=== PATIENT | female | born 1955 | race Caucasian/White ===

== ENCOUNTER → 2016-07-06 | Outpatient (CLI) | payer BC ==
[~2016-07-06] MED LIST: CALCTAB7 PO; ERGO500037 PO; LEVO75TA PO; NRN/300 PO; PRLSR20 PO; VITRON C PO
[2016-07-06 17:27] LABS: THYROID STIMULATING HORMONE 0.781 uIu/ml (0.300-4.500)
== END | disposition home or self-care (01) ==
LOC: C.LABSPEC 15:17
PROVIDERS: ATTEND Internal Medicine
DX: E03.9 Hypothyroidism, unspecified (principal)

== ENCOUNTER → 2016-07-26 | Outpatient (CLI) | payer BC ==
--- NOTE | 2016-07-26 12:37 | MAMMOGRAPHY REPORT ---
BILATERAL DIGITAL SCREENING MAMMOGRAM TOMOSYNTHESIS WITH CAD: 07/26/2016 CLINICAL HISTORY: Routine screening. Patient has no complaints. TECHNIQUE: Breast tomosynthesis in addition to standard 2D mammography was performed. Current study was also evaluated with a Computer Aided Detection (CAD) system. COMPARISON: Comparison is made to exams dated: 07/23/2015 mammogram, 07/04/2013 mammogram, 07/17/2014 m ammogram, 06/27/2012 mammogram, 06/26/2011 mammogram, and 06/24/2010 mammogram - [facility]. BREAST COMPOSITION: There are scattered areas of fibroglandular density in both breasts. FINDINGS: No suspicious masses, calcifications, or areas of architectural distortion are noted in e ither breast. There has been no significant interval change compared to prior exams. Scattered bilat eral benign-appearing calcifications are not significantly changed. IMPRESSION: ACR BI-RADS CATEGORY 2: BENIGN There is no mammographic evidence of malignancy. A 1 year screening mammogram is recommended. The p atient will receive written notification of the results. Approximately 10% of breast cancers are not detected with mammography. A negative mammographic repor t should not delay biopsy if a clinically suggestive mass is present. Gela Benavides M.D. /:07/26/2016 12:11:47 Field Sales Representative: Heather DELATORRE)(), [facility] letter sent: Normal 1/2 BI-RADS Code: ACR BI-RADS Category 2: Benign
== END | disposition home or self-care (01) ==
LOC: C.MAMM 08:03
PROVIDERS: ATTEND Internal Medicine
DX: Z12.31 Encounter for screening mammogram for malignant neoplasm of breast (principal)

== ENCOUNTER → 2017-07-18 | Day surgery (SDC) | payer OTHER ==
[2017-07-05 10:30] VITALS: Ht 160 cm; Wt 88.6 kg
[~2017-07-18] VITALS: Ht 160 cm; Wt 88.6 kg
[~2017-07-18] MED LIST changes: +500ML BSS 0.3ML EPI 1:1000PF IRRIG ONE; +ACETAMINOPHEN 325 MG TAB PO PRN; +AMVISC PLUS 0.8ML SYRINGE INT OCU ONE; +ATROPINE SULFATE 0.1 MG/ML 5ML SYR IV PRN; +BSS FLUSH ONE; +CALC1TAB9 PO; -CALCTAB7 PO; +ENDOCOAT 0.85ML SYRINGE INT OCU ONE; -ERGO500037 PO; +EpHEDrine SULFATE INJ 50 MG/ML AMP IV PRN; +EpINEphrine INJ 1MG/ML AMP 1 MG/ML AMP ONE; +LACTATED RINGER'S 1000ML 500 ML IV SCH; +LIDOCAINE 4% OP SOLN DROP CHARGE ONE; +LIDOCAINE 4% OP SOLN DROP CHARGE OPL SCH; +LIDOCAINE HCL 1% MPF 2 ML VIAL ONE; +MELO15TA10 PO; +MIDAZOLAM HCL 1 MG/ML 2ML VIAL ONE; +MIX: 4ML BSS 1ML EPI 1:1000 PF TOP ONE; +MOXIFLOXACIN OPH SOLN PER DROP CHARGE ONE; +MULT-506 PO; -NRN/300 PO; +POVIDONE-IODINE OP SOLN 30 ML BTL ONE; +PROPARACAINE 0.5% OP SOLN PER DROP CHARGE OPL SCH; +SENNTAB23 PO; +TOBRAMYCIN/DEXAMETHASONE OPH OINT PER APPLN CHARGE ONE; -VITRON C PO
[2017-07-18] MEDS: PHENYLEPHRINE HCL 2.5% OP SOLN PER DROP CHARGE OPL SCH ×3 (06:34→06:43)
[2017-07-18] MEDS: TROPICAMIDE 1% OP SOLN PER DROP CHARGE OPL SCH ×3 (06:35→06:45)
[2017-07-18] MEDS: CYCLOPENTOLATE HCL 1% OP SOLN PER DROP CHARGE OPL SCH ×3 (06:36→06:46)
[2017-07-18] MEDS: MOXIFLOXACIN OPH SOLN PER DROP CHARGE OPL SCH ×3 (06:37→06:48)
--- NOTE | 2017-07-18 06:40 | History & Physical Bridge - SC ---
H&P Re-Evaluation Bridge Note: I have examined the patient, reviewed the History & Physical and in the interval since the performance of the History & Physical I have noted the following changes of clinical significance: No changes noted
--- NOTE | 2017-07-18 07:21 | [facility] Post Operative Brief Note ---
Immediate Operative Summary Operative Date Jul 18, 2017. Pre-Operative Diagnosis Left Eye Cataract Post-Operative Diagnosis Same Procedure(s) Performed Left Cataract Phacoemulsification With Intraocular Lens Implant Surgeon Dr. Gissel Zhong Deputy Sheriff Building Guard Surgeon(s) None Estimated Blood Loss 0 Findings Consistent with Post-Op Diagnosis Specimens None Drains None Anesthesia Type MAC Complication(s) none Disposition Accompanied Pt To Recovery: no Disposition:
--- NOTE | 2017-07-18 07:22 | [facility] Operative Report ---
Operative Report Date of Service Jul 18, 2017. Operative Report DATE OF OPERATION: 07/18/17 PREOPERATIVE DIAGNOSIS: Senile nuclear cataract, left eye POSTOPERATIVE DIAGNOSIS: Senile nuclear cataract, left eye PROCEDURE PERFORMED: Phacoemulsification with intraocular lens implantation, left eye SURGEON: Dr. Farhat Zhong ANESTHESIA: Topical with 1% intracameral lidocaine and monitored anesthesia care COMPLICATIONS: None DESCRIPTION OF PROCEDURE: After positively identifying the patient both verbally and by wristband in the preoperative area, the left eye was marked as the operative eye. The patient was then brought back to the operating room by the anesthesia and nursing staff where they were given a drop of Lidocaine and betadine into the operative eye. They were then sterilely prepped and draped in the standard fashion typical for ophthalmic surgery. Steri-strips were placed along the upper eyelids to keep the lashes back, and a lid speculum was placed into the operative eye. At this point, a documented time out was performed with members of the ophthalmology, nursing, and anesthesia staffs all agreeing upon the correct patient, correct location for surgery, correct procedure, and correct type and power of intraocular lens to be implanted. The microscope was then swung into position. First, a paracentesis wound was made using a sideport blade. Then, in sequence, 1% preservative-free lidocaine followed by Endocoat viscoelastic was injected into the anterior chamber. Next , the main incision was made with a keratome blade in triplanar fashion. A sharp cystotome was introduced into the eye and used to create a tear in the anterior capsule, which was directed into a continuous curvilinear capsulorrhexis using Utrata forceps. Hydrodissection was then performed with BSS on a flat-tip cannula. Next, the phacoemulsification handpiece was introduced into the eye and used to remove the nucleus in a nfssrh-[id number]-[id number] fashion. This was done without complication and then the irrigation-aspiration handpiece was introduced into the eye and used to remove all remaining cortical and epinuclear material. Amvisc was then injected into the anterior chamber as well as into the capsular bag and using the lens injector system, an MX60 23.0 D lens, serial number [id number], and expiration date 04/2019 was injected into the capsular bag and rotated into the correct position. Next, the irrigation- aspiration handpiece was used to remove all remaining Amvisc. BSS was used to hydrate the main wound, and then BSS was injected into the paracentesis site to reach physiologic pressure and then the main wound was checked and found to be watertight. The patient was given drops of Vigamox and Tobradex ointment into the operative eye, and then the surrounding area was cleaned and dried. A clear plastic shield was placed over the eye and the patient was then sat up and taken from the operating room by the anesthesia staff having tolerated the procedure well and suffering no complications. DISPOSITION: The patient was returned to the recovery room in stable condition. I attest to the content of the Intraoperative Record and any orders documented therein. Any exceptions are noted below.
--- NOTE | 2017-07-18 07:23 | Discharge Instructions-SurgCtr ---
Discharge Instructions Date of Service Jul 18, 2017. Visit Reason for Visit: Cataract Left Eye Discharge Discharge Diagnosis / Problem: left cataract Discharge Goals Goal(s): Decrease discomfort, Improve function Activity Recommendations Activity Limitations: as noted below Anesthesia . Post Anesthesia Instructions: If you have had General Anesthesia or IV Sedation: * Do not drive today. * Resume driving when surgeon permits. * Do not make important decisions or sign legal documents today. * Call surgeon for: 1. Temperature elevations greater than 101 degrees F. 2. Uncontrollable pain. 3. Excessive bleeding. 4. Persistent nausea and vomiting. 5. Medication intolerance (nausea, vomiting or rash). * For nausea and vomiting use only clear liquids such as: tea, soda, bouillon until nausea subsides, then gradually increase diet as tolerated. * If you have any concerns or questions, call your surgeon's office. If physician is unavailable and it is an emergency, call 911 or go to the nearest emergency room. . Instructions / Follow-Up Instructions / Follow-Up ACTIVITY RECOMMENDATIONS: * Light activities. * You may walk outside, read, watch television. * You may notice redness on the white part of the eye and some blurry vision - this is normal. MEDICATIONS: Resume previous medications unless instructed otherwise by your surgeon. Start all eye drops at 9:30 am today: * Eye drops (today): Prednisone - one drop in operative eye every 2 hours while awake Ofloxacin - one drop in operative eye every 2 hours while awake Prolensa - one drop in operative eye daily SPECIAL CARE INSTRUCTIONS: * Tape plastic shield over eye to sleep at night. Call your doctor at with any concerns or problems. FOLLOW UP VISIT: Follow-up with Dr Zhong at [place] office as scheduled. Diet Recommendations Home Diet: no limitations Procedures Procedures Performed: Left Cataract Phacoemulsification With Intraocular Lens Implant Pending Studies Studies pending at discharge: no Medical Emergencies . Who to Call and When: Medical Emergencies: If at any time you feel your situation is an emergency, please call 911 immediately. . Non-Emergent Contact Non-Emergency issues call your: Surgeon . . "Provider Documentation" section prepared by Farhat Zhong. .
--- NOTE | 2017-07-18 07:37 | Anesthesia Progress Nt - [facility] ---
Anesthesia Post Op Note Date & Time Jul 18, 2017 at 07:37 Vital Signs Pain Intensity: 0 Vital Signs Past 12 Hours Date Time Temp Pulse Resp B/P (MAP) Pulse Ox O2 Delivery O2 Flow Rate FiO2 07/18/17 07:21 36.4 71 16 135/86 (102) 96 Room Air 07/18/17 06:28 36.4 74 18 161/90 (113) 95 Room Air Notes Mental Status: alert / awake / arousable, participated in evaluation Pt Amnestic to Procedure: Yes Nausea / Vomiting: adequately controlled Pain: adequately controlled Airway Patency, RR, SpO2: stable & adequate BP & HR: stable & adequate Hydration State: stable & adequate Anesthetic Complications: no major complications apparent
[2017-07-18 07:47] VITALS: BP 129/81; PULSE 72; O2SAT 97
== END | disposition home or self-care (01) ==
LOC: X.SURG 06:22
PROVIDERS: ATTEND Ophthalmology
DX: H25.12 Age-related nuclear cataract, left eye (principal); G47.33 Obstructive sleep apnea (adult) (pediatric); K21.9 Gastro-esophageal reflux disease without esophagitis; Z98.84 Bariatric surgery status; E66.9 Obesity, unspecified; Z68.34 Body mass index [BMI] 34.0-34.9, adult; Z98.890 Other specified postprocedural states; Z79.899 Other long term (current) drug therapy

== ENCOUNTER → 2017-07-19 | Outpatient (CLI) | payer OTHER ==
[~2017-07-19] MED LIST changes: -500ML BSS 0.3ML EPI 1:1000PF IRRIG ONE; -ACETAMINOPHEN 325 MG TAB PO PRN; -AMVISC PLUS 0.8ML SYRINGE INT OCU ONE; -ATROPINE SULFATE 0.1 MG/ML 5ML SYR IV PRN; -BSS FLUSH ONE; -ENDOCOAT 0.85ML SYRINGE INT OCU ONE; -EpHEDrine SULFATE INJ 50 MG/ML AMP IV PRN; -EpINEphrine INJ 1MG/ML AMP 1 MG/ML AMP ONE; -LACTATED RINGER'S 1000ML 500 ML IV SCH; -LIDOCAINE 4% OP SOLN DROP CHARGE ONE; -LIDOCAINE 4% OP SOLN DROP CHARGE OPL SCH; -LIDOCAINE HCL 1% MPF 2 ML VIAL ONE; -MIDAZOLAM HCL 1 MG/ML 2ML VIAL ONE; -MIX: 4ML BSS 1ML EPI 1:1000 PF TOP ONE; -MOXIFLOXACIN OPH SOLN PER DROP CHARGE ONE; -POVIDONE-IODINE OP SOLN 30 ML BTL ONE; -PROPARACAINE 0.5% OP SOLN PER DROP CHARGE OPL SCH; -TOBRAMYCIN/DEXAMETHASONE OPH OINT PER APPLN CHARGE ONE
== END | disposition home or self-care (01) ==
LOC: C.PAPS 09:28
PROVIDERS: ATTEND Internal Medicine
DX: Z01.419 Encounter for gynecological examination (general) (routine) without abnormal findings (principal)

== ENCOUNTER → 2017-07-27 | Outpatient (CLI) | payer OTHER ==
--- NOTE | 2017-07-27 15:45 | MAMMOGRAPHY REPORT ---
BILATERAL DIGITAL SCREENING MAMMOGRAM TOMOSYNTHESIS WITH CAD: 07/27/2017 CLINICAL HISTORY: Routine screening. TECHNIQUE: Breast tomosynthesis in addition to standard 2D mammography was performed. Current study was also evaluated with a Computer Aided Detection (CAD) system. COMPARISON: Comparison is made to exams dated: 07/26/2016 mammogram, 07/23/2015 mammogram, 07/17/2014 ma mmogram, 07/04/2013 mammogram, 06/27/2012 mammogram, and 06/26/2011 mammogram - [facility]. BREAST COMPOSITION: There are scattered areas of fibroglandular density in both breasts. FINDINGS: No suspicious masses, calcifications, or areas of architectural distortion are noted in ei ther breast. There has been no significant interval change compared to prior exams. Scattered bilater al benign-appearing calcifications are not significantly changed. IMPRESSION: ACR BI-RADS CATEGORY 2: BENIGN There is no mammographic evidence of malignancy. A 1 year screening mammogram is recommended. The pa tient will receive written notification of the results. Approximately 10% of breast cancers are not detected with mammography. A negative mammographic report should not delay biopsy if a clinically suggestive mass is present. Gela Benavides M.D. /:07/27/2017 15:06:38 Regional Engineer: Marivel CULLEN(R)(M), [facility] letter sent: Normal 1/2 BI-RADS Code: ACR BI-RADS Category 2: Benign
== END | disposition home or self-care (01) ==
LOC: C.MAMM 08:46
PROVIDERS: ATTEND Internal Medicine
DX: Z12.31 Encounter for screening mammogram for malignant neoplasm of breast (principal)

== ENCOUNTER → 2017-08-01 | Day surgery (SDC) | payer OTHER ==
[2017-07-26 10:02] VITALS: Ht 160 cm; Wt 88.6 kg
[~2017-08-01] VITALS: Ht 160 cm; Wt 88.6 kg
[~2017-08-01] MED LIST changes: +500ML BSS 0.3ML EPI 1:1000PF IRRIG ONE; +ACETAMINOPHEN 325 MG TAB PO PRN; +AMVISC PLUS 0.8ML SYRINGE INT OCU ONE; +ATROPINE SULFATE 0.1 MG/ML 5ML SYR IV PRN; +BSS FLUSH ONE; +ENDOCOAT 0.85ML SYRINGE INT OCU ONE; +EpHEDrine SULFATE INJ 50 MG/ML AMP IV PRN; +EpINEphrine INJ 1MG/ML AMP 1 MG/ML AMP ONE; +FENTANYL CITRATE INJ 50 MCG/1 ML 2 ML VIAL ONE; +LACTATED RINGER'S 1000ML 500 ML IV SCH; +LIDOCAINE 4% OP SOLN DROP CHARGE ONE; +LIDOCAINE 4% OP SOLN DROP CHARGE OPR SCH; +LIDOCAINE HCL 1% MPF 2 ML VIAL ONE; +MIDAZOLAM HCL 1 MG/ML 2ML VIAL ONE; +MIX: 4ML BSS 1ML EPI 1:1000 PF TOP ONE; +MOXIFLOXACIN OPH SOLN PER DROP CHARGE ONE; +POVIDONE-IODINE OP SOLN 30 ML BTL ONE; +PROPARACAINE 0.5% OP SOLN PER DROP CHARGE OPR SCH; +TOBRAMYCIN/DEXAMETHASONE OPH OINT PER APPLN CHARGE ONE
[2017-08-01] MEDS: PHENYLEPHRINE HCL 2.5% OP SOLN PER DROP CHARGE OPR SCH ×3 (06:31→06:41)
[2017-08-01] MEDS: TROPICAMIDE 1% OP SOLN PER DROP CHARGE OPR SCH ×3 (06:32→06:42)
[2017-08-01] MEDS: CYCLOPENTOLATE HCL 1% OP SOLN PER DROP CHARGE OPR SCH ×3 (06:33→06:43)
[2017-08-01] MEDS: MOXIFLOXACIN OPH SOLN PER DROP CHARGE OPR SCH ×3 (06:34→06:44)
--- NOTE | 2017-08-01 07:20 | [facility] Post Operative Brief Note ---
Immediate Operative Summary Operative Date Aug 01, 2017. Pre-Operative Diagnosis Right Eye Cataract Post-Operative Diagnosis same Procedure(s) Performed Right Cataract Phacoemulsification With Intraocular Lens Implant Surgeon Dr. Gissel Zhong Nurse First Assist Surgeon(s) 0 Estimated Blood Loss 0 Findings Consistent with Post-Op Diagnosis Specimens none Anesthesia Type MAC Complication(s) none Disposition Accompanied Pt To Recovery: no Disposition:
--- NOTE | 2017-08-01 07:21 | [facility] Operative Report ---
Operative Report Date of Service Aug 01, 2017. Operative Report DATE OF OPERATION: 08/01/17 PREOPERATIVE DIAGNOSIS: Senile nuclear cataract, right eye POSTOPERATIVE DIAGNOSIS: Senile nuclear cataract, right eye PROCEDURE PERFORMED: Phacoemulsification with intraocular lens implantation, right eye SURGEON: Dr. Farhat Zhong ANESTHESIA: Topical with 1% intracameral lidocaine and monitored anesthesia care COMPLICATIONS: None DESCRIPTION OF PROCEDURE: After positively identifying the patient both verbally and by wristband in the preoperative area, the right eye was marked as the operative eye. The patient was then brought back to the operating room by the anesthesia and nursing staff where they were given a drop of Lidocaine and betadine into the operative eye. They were then sterilely prepped and draped in the standard fashion typical for ophthalmic surgery. Steri-strips were placed along the upper eyelids to keep the lashes back, and a lid speculum was placed into the operative eye. At this point, a documented time out was performed with members of the ophthalmology, nursing, and anesthesia staffs all agreeing upon the correct patient, correct location for surgery, correct procedure, and correct type and power of intraocular lens to be implanted. The microscope was then swung into position. First, a paracentesis wound was made using a sideport blade. Then, in sequence, 1% preservative-free lidocaine followed by Endocoat viscoelastic was injected into the anterior chamber. Next , the main incision was made with a keratome blade in triplanar fashion. A sharp cystotome was introduced into the eye and used to create a tear in the anterior capsule, which was directed into a continuous curvilinear capsulorrhexis using Utrata forceps. Hydrodissection was then performed with BSS on a flat-tip cannula. Next, the phacoemulsification handpiece was introduced into the eye and used to remove the nucleus in a taacok-rij-clfjsga fashion. This was done without complication and then the irrigation-aspiration handpiece was introduced into the eye and used to remove all remaining cortical and epinuclear material. Amvisc was then injected into the anterior chamber as well as into the capsular bag and using the lens injector system, an MX60 23.0 D lens, serial number [id number], and expiration date 01/2020 was injected into the capsular bag and rotated into the correct position. Next, the irrigation- aspiration handpiece was used to remove all remaining Amvisc. BSS was used to hydrate the main wound, and then BSS was injected into the paracentesis site to reach physiologic pressure and then the main wound was checked and found to be watertight. The patient was given drops of Vigamox and Tobradex ointment into the operative eye, and then the surrounding area was cleaned and dried. A clear plastic shield was placed over the eye and the patient was then sat up and taken from the operating room by the anesthesia staff having tolerated the procedure well and suffering no complications. DISPOSITION: The patient was returned to the recovery room in stable condition. I attest to the content of the Intraoperative Record and any orders documented therein. Any exceptions are noted below.
[2017-08-01 07:22] VITALS: TEMP 36.4
--- NOTE | 2017-08-01 07:22 | Discharge Instructions-SurgCtr ---
Discharge Instructions Date of Service Aug 01, 2017. Visit Reason for Visit: Right Cataract Discharge Discharge Diagnosis / Problem: right cataract Discharge Goals Goal(s): Decrease discomfort, Improve function Activity Recommendations Activity Limitations: as noted below Anesthesia . Post Anesthesia Instructions: If you have had General Anesthesia or IV Sedation: * Do not drive today. * Resume driving when surgeon permits. * Do not make important decisions or sign legal documents today. * Call surgeon for: 1. Temperature elevations greater than 101 degrees F. 2. Uncontrollable pain. 3. Excessive bleeding. 4. Persistent nausea and vomiting. 5. Medication intolerance (nausea, vomiting or rash). * For nausea and vomiting use only clear liquids such as: tea, soda, bouillon until nausea subsides, then gradually increase diet as tolerated. * If you have any concerns or questions, call your surgeon's office. If physician is unavailable and it is an emergency, call 911 or go to the nearest emergency room. . Instructions / Follow-Up Instructions / Follow-Up ACTIVITY RECOMMENDATIONS: * Light activities. * You may walk outside, read, watch television. * You may notice redness on the white part of the eye and some blurry vision - this is normal. MEDICATIONS: Resume previous medications unless instructed otherwise by your surgeon. Start all eye drops at 9:30 am today: * Eye drops (today): Prednisone - one drop in operative eye every 2 hours while awake Ofloxacin - one drop in operative eye every 2 hours while awake Prolensa - one drop in operative eye daily SPECIAL CARE INSTRUCTIONS: * Tape plastic shield over eye to sleep at night. Call your doctor at with any concerns or problems. FOLLOW UP VISIT: Follow-up with Dr Zhong at [place] office as scheduled. Diet Recommendations Home Diet: no limitations Procedures Procedures Performed: Right Cataract Phacoemulsification With Intraocular Lens Implant Pending Studies Studies pending at discharge: no Medical Emergencies . Who to Call and When: Medical Emergencies: If at any time you feel your situation is an emergency, please call 911 immediately. . Non-Emergent Contact Non-Emergency issues call your: Surgeon . . "Provider Documentation" section prepared by Farhat Zhong. .
[2017-08-01 07:37] VITALS: BP 149/89; PULSE 72; O2SAT 94
--- NOTE | 2017-08-01 07:42 | Anesthesia Progress Nt - [facility] ---
Anesthesia Post Op Note Date & Time Aug 01, 2017 at 07:42 Vital Signs Pain Intensity: 0 Vital Signs Past 12 Hours Date Time Temp Pulse Resp B/P (MAP) Pulse Ox O2 Delivery O2 Flow Rate FiO2 08/01/17 07:37 72 22 149/89 (109) 94 Room Air 08/01/17 07:22 36.4 61 16 134/83 (100) 94 Room Air 08/01/17 06:25 36.5 69 18 160/91 (114) 94 Room Air Notes Mental Status: alert / awake / arousable, participated in evaluation Pt Amnestic to Procedure: Yes Nausea / Vomiting: adequately controlled Pain: adequately controlled Airway Patency, RR, SpO2: stable & adequate BP & HR: stable & adequate Hydration State: stable & adequate Anesthetic Complications: no major complications apparent
== END | disposition home or self-care (01) ==
LOC: X.SURG 06:13
PROVIDERS: ATTEND Ophthalmology
DX: H25.11 Age-related nuclear cataract, right eye (principal); K21.9 Gastro-esophageal reflux disease without esophagitis; E03.9 Hypothyroidism, unspecified; G47.33 Obstructive sleep apnea (adult) (pediatric); K44.9 Diaphragmatic hernia without obstruction or gangrene; E66.9 Obesity, unspecified; Z98.51 Tubal ligation status; Z98.42 Cataract extraction status, left eye; Z90.49 Acquired absence of other specified parts of digestive tract

== ENCOUNTER → 2017-09-14 | Outpatient (CLI) | payer OTHER ==
[~2017-09-14] MED LIST changes: -500ML BSS 0.3ML EPI 1:1000PF IRRIG ONE; -ACETAMINOPHEN 325 MG TAB PO PRN; -AMVISC PLUS 0.8ML SYRINGE INT OCU ONE; -ATROPINE SULFATE 0.1 MG/ML 5ML SYR IV PRN; -BSS FLUSH ONE; -ENDOCOAT 0.85ML SYRINGE INT OCU ONE; -EpHEDrine SULFATE INJ 50 MG/ML AMP IV PRN; -EpINEphrine INJ 1MG/ML AMP 1 MG/ML AMP ONE; -FENTANYL CITRATE INJ 50 MCG/1 ML 2 ML VIAL ONE; -LACTATED RINGER'S 1000ML 500 ML IV SCH; -LIDOCAINE 4% OP SOLN DROP CHARGE ONE; -LIDOCAINE 4% OP SOLN DROP CHARGE OPR SCH; -LIDOCAINE HCL 1% MPF 2 ML VIAL ONE; -MIDAZOLAM HCL 1 MG/ML 2ML VIAL ONE; -MIX: 4ML BSS 1ML EPI 1:1000 PF TOP ONE; -MOXIFLOXACIN OPH SOLN PER DROP CHARGE ONE; -POVIDONE-IODINE OP SOLN 30 ML BTL ONE; -PROPARACAINE 0.5% OP SOLN PER DROP CHARGE OPR SCH; -TOBRAMYCIN/DEXAMETHASONE OPH OINT PER APPLN CHARGE ONE
--- NOTE | 2017-09-22 12:54 | CODING QUERY MEDICAL NECESSITY ---
CQTREATMENT RENDERED WITHOUT A DIAGNOSIS To promote full compliance with coding requirements relating to patient care, physician participation is requested in all cases of wrecking mechanic uncertainty. Please assist us with providing a diagnosis/symptom for the test(s) below: A diagnosis/symptom was not documented on your Order. A valid diagnosis/symptom is required to bill all insurances. Please remember that we are unable to code a diagnosis of rule out, probable, possible, questionable, or suspected. Tests that require a diagnosis: DOS 09/14/17 URINE CULTURE Provider Signature: Date: Thank you Kathy Rojas [employer] Information [employer] Once completed, please kindly fax back to [phone] For questions please call [phone]
== END | disposition home or self-care (01) ==
LOC: C.LABSPEC 18:12
PROVIDERS: ATTEND Internal Medicine
DX: N39.0 Urinary tract infection, site not specified (principal)

== ENCOUNTER 2019-10-04 15:00 | Inpatient (IN) ==
[2019-10-04] MEDS ORDERED: ONDANSETRON INJ 2 MG/ML 2 ML VIAL IV STA (15:33)
[2019-10-04] MEDS ORDERED: HYDROmorphone INJ 1 MG/ML SYRINGE IV STA (15:33)
[2019-10-04] MEDS ORDERED: SODIUM CHLORIDE 0.9% 1000ML 1,000 ML IV ONE (15:33)
[2019-10-04 16:00] LABS: Basophils # (auto) 0.05 K/uL (0-0.2); Basophils % (auto) 0.4 %; Eosinophils # (auto) 0.11 K/uL (0-0.5); Eosinophils % (auto) 0.9 %; Hematocrit (blood only) 38.1 % (37-47); Hemoglobin 12.9 g/dL (12.0-16.0); Immature Granulocytes # (auto) 0.03 K/uL (0.00-0.02); Immature Granulocytes % (auto) 0.2 %; Lymphocytes # (auto) 1.42 K/uL (1.2-3.4); Lymphocytes % (auto) 11.2 %; Mean Corpuscular Hgb Conc 33.9 g/dL (32-36); Mean Corpuscular Volume 88.6 fL (80-100); Monocytes # (auto) 0.68 K/uL (0.11-0.59); Monocytes % (auto) 5.4 %; Neutrophils # (auto) 10.42 K/uL (1.4-6.5); Neutrophils % (auto) 81.9 %; Platelet Count 323 K/uL (130-400); White Blood Count 12.71 K/uL (4.8-10.8)
[2019-10-04 16:18] LABS: Alanine Aminotransferase 21 U/L (12-78); Albumin Level 3.7 gm/dl (3.4-5.0); Aspartate Aminotransferase 19 U/L (15-37); BUN Creatinine Ratio 19.5 (10-20); Blood Urea Nitrogen 16 mg/dl (7-18); Calcium 8.8 mg/dl (8.5-10.1); Carbon Dioxide 26 mmol/L (21-32); Chloride 106 mmol/L (98-107); Est GFR (African American) 90.9; Est GFR (Non-African American) 78.5; Glucose 135 mg/dl (70-99); Lipase 104 U/L (73-393); Potassium 3.6 mmol/L (3.5-5.1); Sodium 138 mmol/L (136-145)
[2019-10-04 16:22] LABS: Albumin Globulin Ratio 0.8 (0.9-2); Alkaline Phosphatase 130 U/L (45-117); Bilirubin,Total 0.3 mg/dl (0.2-1); Globulin 4.5 gm/dl (2.5-4.0); Total Protein 8.2 gm/dl (6.4-8.2); Troponin I < 0.015 ng/ml (0-0.045)
[2019-10-04] MEDS ORDERED: IOVERSOL 100ml IV PRN (16:57)
--- NOTE | 2019-10-04 17:11 | CT Scan Report ---
CT abd pelvis IV con only CLINICAL HISTORY: 63 years-old Female presenting with epigastric pain, vomiting. TECHNIQUE: Multidetector CT of the abdomen and pelvis was performed after the administration of intra venous contrast. IV contrast: 92 mL of Optiray 320. One or more dose lowering techniques were used co nsistent with the principles of ALARA (as low as reasonably achievable), including automatic exposure control, mA or kV adjustment to individual patient size, and/or use of iterative reconstruction. COMPARISON: None. CT DOSE (mGy.cm): The estimated cumulative dose is 1003.12 mGy.cm. FINDINGS: Pulmonologist/Intensivist topogram: Cholecystectomy clips. Lung bases: Normal heart size. Coronary artery and aortic valve calcification. No pericardial or pleu ral effusion. Mosaic attenuation at the lung bases. Mild bronchial wall thickening may be present. Pa tchy added density is difficult to exclude. Liver: Normal morphology. No liver lesion. Patent hepatic vasculature. Biliary: Mild biliary ductal prominence likely a reservoir effect in the post cholecystectomy state. Gallbladder surgically absent. Pancreas: Moderate parenchymal atrophy. Spleen: Focal hypoenhancement superiorly in the spleen in a wedgelike perfusion as well as inferiorly . Adrenal glands: Normal. Kidneys and ureters: Few simple cysts. No hydronephrosis. No gross nephrolithiasis. Ureters nondisten ded. Bladder: Normal. Pelvic organs: Uterus and ovaries normal. Bowel: Fatty atrophy of the appendix suspected. No bowel obstruction. Postsurgical changes of antecol ic Kylie-en-Y gastric bypass. Patent distal anastomosis. No abnormal distention of the pancreaticobili caty limb. Peritoneal cavity: No free fluid or intraperitoneal gas. Lymph nodes: No enlarged lymph nodes in the abdomen or pelvis. Vasculature: Atherosclerosis of the normal caliber abdominal aorta. Mesenteric branch vessels appear widely patent. No focal vessel irregularity. IVC patent. Abdominal wall: Normal. Musculoskeletal: Degenerative changes of the spine. IMPRESSION: 1. Two separate geographic regions of hypoenhancement in the spleen characteristic of splenic infarc ts. This is presumably embolic. 2. Atherosclerosis without evidence of vessel occlusion or focal arterial irregularity. 3. 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 4. Status post cholecystectomy. 5. The appearance of the lung bases may suggest small airways disease, reactive airways disease, or viral bronchiolitis. ACT 112: Negative or not required by law. Electronically signed by: Charles Hoffman M.D. 10/04/2019 5:09 PM
[2019-10-04 18:10] LABS: INR 1.1 (0.9-1.1); Partial Thromboplastin Ratio 0.9; Partial Thromboplastin Time 24.8 Seconds (21.0-31.0); Prothrombin Time 11.4 Seconds (9.0-12.0)
[2019-10-04] MEDS ORDERED: ONDANSETRON INJ 2 MG/ML 2 ML VIAL ONE (18:47)
[2019-10-04 19:05] LABS: Appearance Urine Clear (Clear); Bacteria Urine Automated Negative (Negative); Bilirubin Urine Negative (Negative); Blood Urine 1+ (Negative); Cast Urine Automated 0 /lpf (0-5); Color Urine Yellow; Glucose Urine UA Negative (Negative); Ketones Urine 1+ (Negative); Leukocyte Esterase Urine Negative (Negative); Nitrite Urine Negative (Negative); Specific Gravity Urine 1.025 (1.000-1.030); Urobilinogen Urine Negative (Negative); pH Urine 7.5 (4.5-7.5)
[2019-10-04 19:20] LABS: Protein Urine 1+ (Negative); Sulfosalicylic Acid Urine Positive (Negative)
[2019-10-04] MEDS ORDERED: ACETAMINOPHEN 1,000 MG/100 ML VIAL IV STA (19:28)
[2019-10-04] MEDS ORDERED: PROMETHAZINE 6.25 MG/50.25 ML BAG IV STA (19:28)
--- NOTE | 2019-10-04 20:17 | History & Physical Report ---
Date of Service October 04, 2019 Assessment & Plan (1) Splenic infarct: 63yo C female presenting with acute onset abdominal pain, found to have two regions of hypoenhancement in the spleen which is characteristic of splenic infarcts, presumably embolic in nature. Also noted to have atherosclerosis of the aorta without clot or dilatation, s/p cholecystectomy and Kylie-en-Y gastric bypass surgery. Lung bases suggestive of small airway disease, reactive disease or viral bronchiolitis. Patient with no prior history of blood clots/VTE. Overall she denies complaint of fever/chills/body aches/cough/SOB. She denies recent travel, sick contacts or contact with Covid-19 positive persons. Patient without known hematologic disease or dyscrasia. Lipase is WNL. She is afebrile, hemodynamically stable. Per review of literature, SARS-CoV-2 is associated with increased risk of coagulopathy and thromboembolic events. While it is unlikely that Covid-19 is the underlying cause for her acute presentation in the setting of splenic infarct from suspected thromboembolism and small airway disesease of lung bases will request in-house rapid SARS-CoV-2 testing. This was discussed with lab and ER staff. Patient was returned to Airborne/Contact precautions pending results. -SARS-CoV-2 PCR test sent and pending -Maintain precautions, Airborne and Contact until testing is resulted -Check bilateral LE doppler -Check 2D echo -These above studies can be delayed pending results of rapid SARS-CoV-2 testing -No anticoaguation at this time -Pain control PRN -Gentle hydration -Zofran PRN -Should patient clinically worsen or become hemodynamically compromised will consult General Surgery (2) Hypothyroidism: Chronic -Check TSH with AM labs -Continue Synthroid 75mcg po daily Present on Admission?: Yes (3) GERD (gastroesophageal reflux disease): Patient with history of GERD, Barretts esophagus with esophageal dilatation in the past. EGD 11/2018 with hiatal hernia, Schatzki ring which was dilated -Continue Omeprazole 20mg po daily F/E/N - Gentle hydration, monitor electrolytes and replete as needed, NPO for now Ppx - Lovenox Code - Full per discussion with patient Dispo - Admit to medical floor Present on Admission?: Yes Admission and Anticipated Discharge Date Admission Date: 10/04/19 Anticipated date of discharge: 10/06/19 History of Present Illness Chief Complaint: Abdominal pain Primary Care Provider: Louis Lopez MD Kathy Ford is a 63yo C female presenting with acute onset abdominal pain, nausea and vomiting x 1 day. Found to have splenic infarct. History limited as patient in extreme discomfort during my encounter. She is able to answer ques tions appropriately and follow commands. ER Course: Tylenol, Dilaudid, Zofran, Phenergan, NSS Allergies Allergy/AdvReac Type Severity Reaction Status Date / Time No Known Allergies Allergy Verified 10/04/19 19:07 Home Medications Home Medications Medication Instructions Recorded Confirmed Type Women's Multivitamin 1 tab PO QAM 04/01/18 10/04/19 History calcium citrate-vitamin D3 2 tab PO QAM 04/01/18 10/04/19 History [Citracal + D Maximum] docusate sodium 200 mg PO QAM 04/01/18 10/04/19 History levothyroxine 75 mcg PO QAM 04/01/18 10/04/19 History omeprazole 20 mg PO QAM 04/01/18 10/04/19 History meloxicam 15 mg PO DAILY 10/04/19 10/04/19 History metoprolol succinate 50 mg PO DAILY 10/04/19 10/04/19 History Past Med/Surg History Social History Preferred Language: Greek Communication Ability: Effective Photographer Still Required: No Beliefs That Will Affect Care: None Current Living Situation: Family Current Living Situation Comment: lives with fiance, daughter and grandson Other Information That Helps Us Care for You: No Feels Safe at Home: Yes Safety Concerns: Feels Safe At This Time Smoking Status: Former smoker Tobacco Type: cigarettes ; Second Hand Exposure: Yes ; Hx Alcohol Use: Yes Alcohol type: beer Hx Substance Use: No Review of Systems Review of Systems: All systems reviewed & are unremarkable except as noted in HPI & below Physical Exam Physical Exam: General: patient in moderate distress secondary to abdominal discomfort, answers questions appropriately and follows commands Skin: warm, dry, intact, no rashes or lesions HEENT: NC/AT, PERRL, EOMI, anicteric sclera, conjunctiva without injection, external ear normal to inspection and nontender, nares patent, moist mucus membranes, dentition intact, no oropharyngeal lesions, neck supple, trachea midline, no LAD, no thyromegaly, no JVD Heart: +S1/S2, regular, no m/r/g Lungs: equal air entry bilaterally, no rales/rhonchi/wheezes Abd: diminished bowel sounds, abdomen mildly distended, soft, tender to palpation with voluntary guarding Ext: warm, 2+ pulses in UE/LE bilaterally, no clubbing/cyanosis or edema Neuro: nonfocal, patient AA&O, speech intact, no facial droop, moving all extremities on command with equal strength 5/5 Results & Data Results & Data ([facility]) Vital Signs (Past 12 Hours) Vital Signs Temp Pulse Pulse Resp BP BP Pulse Ox 10/04/19 19:31 76 12 178/92 H 94 10/04/19 19:03 67 19 134/66 98 10/04/19 18:30 70 15 148/78 H 93 10/04/19 18:00 72 15 151/85 H 94 10/04/19 17:30 70 15 148/86 H 93 10/04/19 17:00 70 15 151/85 H 93 10/04/19 16:30 73 15 148/86 H 93 10/04/19 16:15 68 15 98 10/04/19 16:00 68 66 14 152/78 H 152/78 H 95 10/04/19 15:52 70 20 161/87 H 91 10/04/19 15:51 73 16 93 10/04/19 15:49 72 19 167/86 H 91 10/04/19 15:45 72 20 92 10/04/19 15:30 76 20 167/86 H 96 10/04/19 15:12 37.0 C 72 20 187/94 H 96 Laboratory Results Lab Results 10/04/19 10/04/19 10/04/19 Range/Units 15:40 15:40 15:40 WBC 12.71 H (4.8-10.8) K/uL RBC 4.30 (4.2-5.4) M/uL Hgb 12.9 (12.0-16.0) g/dL Hct 38.1 (37-47) % MCV 88.6 (80-100) fL MCH 30.0 (25-34) pg MCHC 33.9 (32-36) g/dL RDW Std Deviation 45.0 (36.4-46.3) fL RDW Coeff of Iqra 14.0 (11.5-14.5) % Plt Count 323 (130-400) K/uL MPV 10.0 (7.4-10.4) fL Immature Gran % (Auto) 0.2 % Neut % (Auto) 81.9 % Lymph % (Auto) 11.2 % [place] % (Auto) 5.4 % Eos % (Auto) 0.9 % Baso % (Auto) 0.4 % Immature Gran # (Auto) 0.03 H (0.00-0.02) K/uL Neut # (Auto) 10.42 H (1.4-6.5) K/uL Lymph # (Auto) 1.42 (1.2-3.4) K/uL [place] # (Auto) 0.68 H (0.11-0.59) K/uL Eos # (Auto) 0.11 (0-0.5) K/uL Baso # (Auto) 0.05 (0-0.2) K/uL PT 11.4 (9.0-12.0) Seconds INR 1.1 (0.9-1.1) APTT 24.8 (21.0-31.0) Seconds PTT Ratio 0.9 Sodium 138 (136-145) mmol/L Potassium 3.6 (3.5-5.1) mmol/L Chloride 106 (98-107) mmol/L Carbon Dioxide 26 (21-32) mmol/L Anion Gap 5.0 (3-11) BUN 16 (7-18) mg/dl Creatinine 0.80 (0.6-1.2) mg/dl Est Cr Clr Drug Dosing Not Reportable Est GFR ( Amer) 90.9 Est GFR (Non-Af Amer) 78.5 BUN/Creatinine Ratio 19.5 (10-20) Glucose 135 H (70-99) mg/dl Calcium 8.8 (8.5-10.1) mg/dl Total Bilirubin 0.3 (0.2-1) mg/dl AST 19 (15-37) U/L ALT 21 (12-78) U/L Alkaline Phosphatase 130 H (45-117) U/L Troponin I < 0.015 (0-0.045) ng/ml Total Protein 8.2 (6.4-8.2) gm/dl Albumin 3.7 (3.4-5.0) gm/dl Globulin 4.5 H (2.5-4.0) gm/dl Albumin/Globulin Ratio 0.8 L (0.9-2) Lipase 104 (73-393) U/L Urine Color Urine Appearance (Clear) Urine pH (4.5-7.5) Ur Specific [place] (1.000-1.030) Urine Protein (Negative) Urine Glucose (UA) (Negative) Urine Ketones (Negative) Urine Blood (Negative) Urine Nitrite (Negative) Urine Bilirubin (Negative) Urine Urobilinogen (Negative) Ur Leukocyte Esterase (Negative) Urine WBC (Auto) (0-5) /hpf Urine RBC (Auto) (0-4) /hpf U Hyaline Cast (Auto) (0-5) /lpf U Epithel Cells (Auto) (0-5) /lpf Urine Bacteria (Auto) (Negative) SARS-CoV-2 RNA (RT-PCR) 10/04/19 10/04/19 Range/Units 18:48 20:17 WBC (4.8-10.8) K/uL RBC (4.2-5.4) M/uL Hgb (12.0-16.0) g/dL Hct (37-47) % MCV (80-100) fL MCH (25-34) pg MCHC (32-36) g/dL RDW Std Deviation (36.4-46.3) fL RDW Coeff of Iqra (11.5-14.5) % Plt Count (130-400) K/uL MPV (7.4-10.4) fL Immature Gran % (Auto) % Neut % (Auto) % Lymph % (Auto) % [place] % (Auto) % Eos % (Auto) % Baso % (Auto) % Immature Gran # (Auto) (0.00-0.02) K/uL Neut # (Auto) (1.4-6.5) K/uL Lymph # (Auto) (1.2-3.4) K/uL [place] # (Auto) (0.11-0.59) K/uL Eos # (Auto) (0-0.5) K/uL Baso # (Auto) (0-0.2) K/uL PT (9.0-12.0) Seconds INR (0.9-1.1) APTT (21.0-31.0) Seconds PTT Ratio Sodium (136-145) mmol/L Potassium (3.5-5.1) mmol/L Chloride (98-107) mmol/L Carbon Dioxide (21-32) mmol/L Anion Gap (3-11) BUN (7-18) mg/dl Creatinine (0.6-1.2) mg/dl Est Cr Clr Drug Dosing Est GFR ( Amer) Est GFR (Non-Af Amer) BUN/Creatinine Ratio (10-20) Glucose (70-99) mg/dl Calcium (8.5-10.1) mg/dl Total Bilirubin (0.2-1) mg/dl AST (15-37) U/L ALT (12-78) U/L Alkaline Phosphatase (45-117) U/L Troponin I (0-0.045) ng/ml Total Protein (6.4-8.2) gm/dl Albumin (3.4-5.0) gm/dl Globulin (2.5-4.0) gm/dl Albumin/Globulin Ratio (0.9-2) Lipase (73-393) U/L Urine Color Yellow Urine Appearance Clear (Clear) Urine pH 7.5 (4.5-7.5) Ur Specific [place] 1.025 (1.000-1.030) Urine Protein 1+ H (Negative) Urine Glucose (UA) Negative (Negative) Urine Ketones 1+ H (Negative) Urine Blood 1+ H (Negative) Urine Nitrite Negative (Negative) Urine Bilirubin Negative (Negative) Urine Urobilinogen Negative (Negative) Ur Leukocyte Esterase Negative (Negative) Urine WBC (Auto) 1-5 (0-5) /hpf Urine RBC (Auto) 5-10 H (0-4) /hpf U Hyaline Cast (Auto) 0 (0-5) /lpf U Epithel Cells (Auto) 5-10 H (0-5) /lpf Urine Bacteria (Auto) Negative (Negative) SARS-CoV-2 RNA (RT-PCR) Cancelled ECG Additional Comments: The study shows sinus bradycardia at 59bpm, normal axis, XB=681, QRS=92, JAu=499, no acute ischemic changes Code Status & VTE Plan Code Status FULL VTE Prophylaxis Plan VTE Prophylaxis will be ordered: Yes PG Care Time/CCT Total # of Minutes Spent Total Time Spent with Patient: Total time spent is greater than 50% in coordination of care (as documented) at patient's floor/unit and/or counseling patient: Coding Level of Care Code 05727 OBS Care - Level 2 Diagnoses Splenic infarct D73.5 Hypothyroidism E03.9 Hypothyroidism type: unspecified GERD (gastroesophageal reflux disease) K21.0 Esophagitis presence: with esophagitis (1) Hypothyroidism Hypothyroidism type: unspecified Qualified Code(s): E03.9 - Hypothyroidism, unspecified (2) GERD (gastroesophageal reflux disease) Esophagitis presence: with esophagitis Qualified Code(s): K21.0 - Gastro- esophageal reflux disease with esophagitis
--- NOTE | 2019-10-04 23:00 | Emergency Department Note ---
History of Present Illness General Chief complaint: Abdominal Pain Stated complaint: ABD PAIN, VOMITING Time Seen by Provider: 10/04/19 15:18 Source: patient Mode of arrival: ambulatory Limitations: no limitations History of Present Illness Maximum Pain Intensity: 4 This patient is a 63-year-old female who presents to the emergency department for evaluation of abdominal pain and vomiting which started about 3 hours prior to arrival. Patient states that she has had an upset stomach for the past few days, but symptoms became severe about 3 hours ago. She states that she was not doing anything when the pain started. Pain is in the upper abdomen and associated with nausea and vomiting. She reports that she has had some loose stools recently, but has not been having large bowel movements. She denies urinary symptoms, fevers, chest pain, cough or shortness of breath. She states that this pain is severe and rates the discomfort a 9/10. She states that nothing makes the pain better and it is worsened with movements. She has a history of gastric bypass and cholecystectomy. She is treated for GERD and hypertension and is otherwise healthy. Home Medications Home Medications Medication Instructions Recorded Confirmed Type Women's Multivitamin 1 tab PO QAM 04/01/18 10/04/19 History calcium citrate-vitamin D3 2 tab PO QAM 04/01/18 10/04/19 History [Citracal + D Maximum] docusate sodium 200 mg PO QAM 04/01/18 10/04/19 History levothyroxine 75 mcg PO QAM 04/01/18 10/04/19 History omeprazole 20 mg PO QAM 04/01/18 10/04/19 History meloxicam 15 mg PO DAILY 10/04/19 10/04/19 History metoprolol succinate 50 mg PO DAILY 10/04/19 10/04/19 History Allergies Allergy/AdvReac Type Severity Reaction Status Date / Time No Known Allergies Allergy Verified 10/04/19 19:07 Past Med/Surg History Medical History Barretts esophagus Colon polyps Fatty liver disease, nonalcoholic GERD (gastroesophageal reflux disease) History of esophageal dilatation Hypothyroidism Migraine Nausea and vomiting after administration of anesthetic agent Osteoarthritis Sleep apnea doesn't use CPAP as ordered Surgical History History of bilateral cataract extraction History of carpal tunnel release bilt History of cholecystectomy History of colonoscopy History of dilatation and curettage History of esophagogastroduodenoscopy (EGD) History of gastric bypass History of repair of hiatal hernia History of tooth extraction wisdom teeth Social History Preferred Language: [place] Communication Ability: Effective Computer Analyst Required: No Beliefs That Will Affect Care: None Current Living Situation: Family Current Living Situation Comment: lives with fiance, daughter and grandson Other Information That Helps Us Care for You: No Feels Safe at Home: Yes Safety Concerns: Feels Safe At This Time Smoking Status: Former smoker Tobacco Type: cigarettes ; Second Hand Exposure: Yes ; Hx Alcohol Use: Yes Alcohol type: beer Hx Substance Use: No Review of Systems A total of 10 systems reviewed and were otherwise negative Physical Exam Vital Signs Vital Signs - 24 hr 10/04/19 15:12 10/04/19 15:30 10/04/19 15:45 Temperature 37.0 C Temperature Source Oral Oral Pulse Rate 72 72 Pulse Rate [Apical] 76 Pulse Rate from SpO2 Sensor Pulse Rhythm [Apical] Regular Pulse Strength [Apical] Normal Respiratory Rate 20 20 20 Respiratory Effort / Characteristics Non-Labored Non-Labored Spontaneous Respiratory Depth Normal Normal Respiratory Pattern Regular Blood Pressure 187/94 H Blood Pressure [Left Arm] 167/86 H Blood Pressure Mean 125 Blood Pressure Mean [Left Arm] 113 Blood Pressure Position [Left Arm] Lying Pulse Oximetry 96 96 92 Oxygen Delivery Method Room Air Room Air Nasal Cannula Oxygen Flow Rate 3 Sepsis Recent Fever Within 48 Hours No Sepsis Action Taken by Nursing No Action Required Oxygen Flow Rate - Titration 3 Pulse Oximetry Post Tiitration 92 10/04/19 15:49 10/04/19 15:51 10/04/19 15:52 Temperature Temperature Source Pulse Rate 72 73 70 Pulse Rate [Apical] Pulse Rate from SpO2 Sensor 76 71 65 Pulse Rhythm [Apical] Pulse Strength [Apical] Respiratory Rate 19 16 20 Respiratory Effort / Characteristics Respiratory Depth Respiratory Pattern Blood Pressure 167/86 H 161/87 H Blood Pressure [Left Arm] Blood Pressure Mean 101 106 Blood Pressure Mean [Left Arm] Blood Pressure Position [Left Arm] Pulse Oximetry 91 93 91 Oxygen Delivery Method Nasal Cannula Nasal Cannula Nasal Cannula Oxygen Flow Rate 3 3 3 Sepsis Recent Fever Within 48 Hours Sepsis Action Taken by Nursing Oxygen Flow Rate - Titration Pulse Oximetry Post Tiitration 05/09/20 16:00 10/04/19 16:15 10/04/19 16:30 Temperature Temperature Source Pulse Rate 68 68 73 Pulse Rate [Apical] 66 Pulse Rate from SpO2 Sensor 68 63 73 Pulse Rhythm [Apical] Regular Pulse Strength [Apical] Normal Respiratory Rate 14 15 15 Respiratory Effort / Characteristics Non-Labored Spontaneous Respiratory Depth Normal Respiratory Pattern Regular Blood Pressure 152/78 H 148/86 H Blood Pressure [Left Arm] 152/78 H Blood Pressure Mean 91 103 Blood Pressure Mean [Left Arm] 102 Blood Pressure Position [Left Arm] Lying Pulse Oximetry 95 98 93 Oxygen Delivery Method Nasal Cannula Nasal Cannula Nasal Cannula Oxygen Flow Rate 3 3 3 Sepsis Recent Fever Within 48 Hours Sepsis Action Taken by Nursing Oxygen Flow Rate - Titration Pulse Oximetry Post Tiitration 10/04/19 17:00 10/04/19 17:30 10/04/19 18:00 Temperature Temperature Source Pulse Rate 70 70 72 Pulse Rate [Apical] Pulse Rate from SpO2 Sensor 73 73 73 Pulse Rhythm [Apical] Pulse Strength [Apical] Respiratory Rate 15 15 15 Respiratory Effort / Characteristics Respiratory Depth Respiratory Pattern Blood Pressure 151/85 H 148/86 H 151/85 H Blood Pressure [Left Arm] Blood Pressure Mean 107 106 107 Blood Pressure Mean [Left Arm] Blood Pressure Position [Left Arm] Pulse Oximetry 93 93 94 Oxygen Delivery Method Nasal Cannula Nasal Cannula Nasal Cannula Oxygen Flow Rate 3 3 3 Sepsis Recent Fever Within 48 Hours Sepsis Action Taken by Nursing Oxygen Flow Rate - Titration Pulse Oximetry Post Tiitration 10/04/19 18:30 10/04/19 19:03 10/04/19 19:31 Temperature Temperature Source Pulse Rate 70 67 76 Pulse Rate [Apical] Pulse Rate from SpO2 Sensor 73 62 74 Pulse Rhythm [Apical] Pulse Strength [Apical] Respiratory Rate 15 19 12 Respiratory Effort / Characteristics Respiratory Depth Respiratory Pattern Blood Pressure 148/78 H 134/66 178/92 H Blood Pressure [Left Arm] Blood Pressure Mean 101 77 103 Blood Pressure Mean [Left Arm] Blood Pressure Position [Left Arm] Pulse Oximetry 93 98 94 Oxygen Delivery Method Nasal Cannula Nasal Cannula Nasal Cannula Oxygen Flow Rate 3 2 2 Sepsis Recent Fever Within 48 Hours Sepsis Action Taken by Nursing Oxygen Flow Rate - Titration Pulse Oximetry Post Tiitration 10/04/19 20:00 Temperature Temperature Source Pulse Rate 61 Pulse Rate [Apical] Pulse Rate from SpO2 Sensor 63 Pulse Rhythm [Apical] Pulse Strength [Apical] Respiratory Rate 15 Respiratory Effort / Characteristics Respiratory Depth Respiratory Pattern Blood Pressure 172/89 H Blood Pressure [Left Arm] Blood Pressure Mean 113 Blood Pressure Mean [Left Arm] Blood Pressure Position [Left Arm] Pulse Oximetry 93 Oxygen Delivery Method Nasal Cannula Oxygen Flow Rate 2 Sepsis Recent Fever Within 48 Hours Sepsis Action Taken by Nursing Oxygen Flow Rate - Titration Pulse Oximetry Post Tiitration VITALS: Vitals are noted on the nurse's note and reviewed by myself. GENERAL: This is a 63-year-old female, in moderate distress, moaning in pain. SKIN: The skin was without rashes. EARS: External auditory canals clear, tympanic membranes pearly dubois without erythema or effusion bilaterally. EYES: Pupils equal round and reactive to light and accommodation. MOUTH: Mucous membranes moist. NECK: Supple without nuchal rigidity. No lymphadenopathy. HEART: Regular rate and rhythm without murmurs gallops or rubs. LUNGS: Clear to auscultation bilaterally without wheezes, rales or rhonchi. No retractions or accessory muscle use. ABDOMEN: Hypoactive bowel sounds x4. Abdomen is soft and nondistended. There is mild tenderness to palpation throughout the abdomen, with significant tendern ess in the epigastric region. No guarding or rebound tenderness. EXTREMITIES: No pitting edema of the lower extremities. NEURO: Patient was alert and oriented to person place and time. Course Consultations Consultation #1: Dr. Zuñiga - Vascular surgery I spoke with Dr. Zuñiga regarding the case and he does not feel the patient should be given heparin at this time as there is no occlusion. Consultation #2: Krystal Day PA-C - [facility] [place] Administered Medications Ioversol (Optiray 320 100ml) 92 ml IV ONCE PRN PRN Reason: Interaction Checking Stop: 10/08/19 16:56 Last Admin: 10/04/19 16:57 Dose: 92 ml Documented by: [id number] Discontinued Medications Hydromorphone HCl (Dilaudid) 1 mg IV NOW STA Stop: 10/04/19 15:34 Last Admin: 10/04/19 15:44 Dose: 1 mg Documented by: [id number] Sodium Chloride (Nss 1000ml) 1,000 mls @ 999 mls/hr IV .Q1H1M ONE Stop: 10/04/19 16:33 Last Infusion: 10/04/19 16:45 Dose: 0 mls/hr Documented by: [id number] Admin: 10/04/19 15:44 Dose: 999 mls/hr Documented by: [id number] Acetaminophen (Ofirmev) 1,000 mg in 100 mls @ 400 mls/hr IV NOW STA Stop: 10/04/19 19:42 Last Infusion: 10/04/19 20:24 Dose: 0 mls/hr Documented by: [id number] Admin: 10/04/19 19:54 Dose: 400 mls/hr Documented by: [id number] Promethazine HCl (Phenergan) 6.25 mg in 50.25 mls @ 201 mls/hr IV NOW STA Stop: 10/04/19 19:42 Last Infusion: 10/04/19 19:54 Dose: 0 mls/hr Documented by: [id number] Admin: 10/04/19 19:40 Dose: 201 mls/hr Documented by: [id number] Ondansetron HCl (Zofran) 4 mg IV NOW STA Stop: 10/04/19 15:34 Last Admin: 10/04/19 15:44 Dose: 4 mg Documented by: [id number] Ondansetron HCl (Zofran) Confirm Administered Dose 4 mg .ROUTE .STK-MED ONE Stop: 10/04/19 18:48 Last Admin: 10/04/19 19:01 Dose: 4 mg Documented by: [id number] Medical Decision Making Differential Diagnosis Differential diagnosis includes appendicitis, diverticulitis, bowel obstruction, inflammatory bowel disease, renal colic, PUD, biliary pathology, pancreatitis, mesenteric ischemia, aortic pathology, infection, genitourinary, UTI, perforated viscus, among others. Home Medications Current Medication List: was personally reviewed by me Laboratory Data Attestation: I reviewed the patient's lab results. Result diagrams: 10/04/19 15:40 10/04/19 15:40 Lab Results 10/04/19 10/04/19 10/04/19 Range/Units 15:40 15:40 15:40 WBC 12.71 H (4.8-10.8) K/uL RBC 4.30 (4.2-5.4) M/uL Hgb 12.9 (12.0-16.0) g/dL Hct 38.1 (37-47) % MCV 88.6 (80-100) fL MCH 30.0 (25-34) pg MCHC 33.9 (32-36) g/dL RDW Std Deviation 45.0 (36.4-46.3) fL RDW Coeff of Iqra 14.0 (11.5-14.5) % Plt Count 323 (130-400) K/uL MPV 10.0 (7.4-10.4) fL Immature Gran % (Auto) 0.2 % Neut % (Auto) 81.9 % Lymph % (Auto) 11.2 % [place] % (Auto) 5.4 % Eos % (Auto) 0.9 % Baso % (Auto) 0.4 % Immature Gran # (Auto) 0.03 H (0.00-0.02) K/uL Neut # (Auto) 10.42 H (1.4-6.5) K/uL Lymph # (Auto) 1.42 (1.2-3.4) K/uL [place] # (Auto) 0.68 H (0.11-0.59) K/uL Eos # (Auto) 0.11 (0-0.5) K/uL Baso # (Auto) 0.05 (0-0.2) K/uL PT 11.4 (9.0-12.0) Seconds INR 1.1 (0.9-1.1) APTT 24.8 (21.0-31.0) Seconds PTT Ratio 0.9 Sodium 138 (136-145) mmol/L Potassium 3.6 (3.5-5.1) mmol/L Chloride 106 (98-107) mmol/L Carbon Dioxide 26 (21-32) mmol/L Anion Gap 5.0 (3-11) BUN 16 (7-18) mg/dl Creatinine 0.80 (0.6-1.2) mg/dl Est Cr Clr Drug Dosing Not Reportable Est GFR ( Amer) 90.9 Est GFR (Non-Af Amer) 78.5 BUN/Creatinine Ratio 19.5 (10-20) Glucose 135 H (70-99) mg/dl Calcium 8.8 (8.5-10.1) mg/dl Total Bilirubin 0.3 (0.2-1) mg/dl AST 19 (15-37) U/L ALT 21 (12-78) U/L Alkaline Phosphatase 130 H (45-117) U/L Troponin I < 0.015 (0-0.045) ng/ml Total Protein 8.2 (6.4-8.2) gm/dl Albumin 3.7 (3.4-5.0) gm/dl Globulin 4.5 H (2.5-4.0) gm/dl Albumin/Globulin Ratio 0.8 L (0.9-2) Lipase 104 (73-393) U/L Urine Color Urine Appearance (Clear) Urine pH (4.5-7.5) Ur Specific [place] (1.000-1.030) Urine Protein (Negative) Urine Glucose (UA) (Negative) Urine Ketones (Negative) Urine Blood (Negative) Urine Nitrite (Negative) Urine Bilirubin (Negative) Urine Urobilinogen (Negative) Ur Leukocyte Esterase (Negative) Urine WBC (Auto) (0-5) /hpf Urine RBC (Auto) (0-4) /hpf U Hyaline Cast (Auto) (0-5) /lpf U Epithel Cells (Auto) (0-5) /lpf Urine Bacteria (Auto) (Negative) 10/04/19 Range/Units 18:48 WBC (4.8-10.8) K/uL RBC (4.2-5.4) M/uL Hgb (12.0-16.0) g/dL Hct (37-47) % MCV (80-100) fL MCH (25-34) pg MCHC (32-36) g/dL RDW Std Deviation (36.4-46.3) fL RDW Coeff of Iqra (11.5-14.5) % Plt Count (130-400) K/uL MPV (7.4-10.4) fL Immature Gran % (Auto) % Neut % (Auto) % Lymph % (Auto) % [place] % (Auto) % Eos % (Auto) % Baso % (Auto) % Immature Gran # (Auto) (0.00-0.02) K/uL Neut # (Auto) (1.4-6.5) K/uL Lymph # (Auto) (1.2-3.4) K/uL [place] # (Auto) (0.11-0.59) K/uL Eos # (Auto) (0-0.5) K/uL Baso # (Auto) (0-0.2) K/uL PT (9.0-12.0) Seconds INR (0.9-1.1) APTT (21.0-31.0) Seconds PTT Ratio Sodium (136-145) mmol/L Potassium (3.5-5.1) mmol/L Chloride (98-107) mmol/L Carbon Dioxide (21-32) mmol/L Anion Gap (3-11) BUN (7-18) mg/dl Creatinine (0.6-1.2) mg/dl Est Cr Clr Drug Dosing Est GFR ( Amer) Est GFR (Non-Af Amer) BUN/Creatinine Ratio (10-20) Glucose (70-99) mg/dl Calcium (8.5-10.1) mg/dl Total Bilirubin (0.2-1) mg/dl AST (15-37) U/L ALT (12-78) U/L Alkaline Phosphatase (45-117) U/L Troponin I (0-0.045) ng/ml Total Protein (6.4-8.2) gm/dl Albumin (3.4-5.0) gm/dl Globulin (2.5-4.0) gm/dl Albumin/Globulin Ratio (0.9-2) Lipase (73-393) U/L Urine Color Yellow Urine Appearance Clear (Clear) Urine pH 7.5 (4.5-7.5) Ur Specific [place] 1.025 (1.000-1.030) Urine Protein 1+ H (Negative) Urine Glucose (UA) Negative (Negative) Urine Ketones 1+ H (Negative) Urine Blood 1+ H (Negative) Urine Nitrite Negative (Negative) Urine Bilirubin Negative (Negative) Urine Urobilinogen Negative (Negative) Ur Leukocyte Esterase Negative (Negative) Urine WBC (Auto) 1-5 (0-5) /hpf Urine RBC (Auto) 5-10 H (0-4) /hpf U Hyaline Cast (Auto) 0 (0-5) /lpf U Epithel Cells (Auto) 5-10 H (0-5) /lpf Urine Bacteria (Auto) Negative (Negative) Imaging Data Attestation: I personally reviewed and interpreted this imaging study as follows: Radiologist's Impression: CT abd pelvis IV con only FINDINGS: Clinical Documentation Clerk topogram: Cholecystectomy clips. Lung bases: Normal heart size. Coronary artery and aortic valve calcification. No pericardial or pleural effusion. Mosaic attenuation at the lung bases. Mild bronchial wall thickening may be present. Patchy added density is difficult to exclude. Liver: Normal morphology. No liver lesion. Patent hepatic vasculature. Biliary: Mild biliary ductal prominence likely a reservoir effect in the post cholecystectomy state. Gallbladder surgically absent. Pancreas: Moderate parenchymal atrophy. Spleen: Focal hypoenhancement superiorly in the spleen in a wedgelike perfusion as well as inferiorly. Adrenal glands: Normal. Kidneys and ureters: Few simple cysts. No hydronephrosis. No gross nephrolithiasis. Ureters nondistended. Bladder: Normal. Pelvic organs: Uterus and ovaries normal. Bowel: Fatty atrophy of the appendix suspected. No bowel obstruction. Postsurgical changes of antecolic Kylie-en-Y gastric bypass. Patent distal anastomosis. No abnormal distention of the pancreaticobiliary limb. Peritoneal cavity: No free fluid or intraperitoneal gas. Lymph nodes: No enlarged lymph nodes in the abdomen or pelvis. Vasculature: Atherosclerosis of the normal caliber abdominal aorta. Mesenteric branch vessels appear widely patent. No focal vessel irregularity. IVC patent. Abdominal wall: Normal. Musculoskeletal: Degenerative changes of the spine. IMPRESSION: 1. Two separate geographic regions of hypoenhancement in the spleen characteristic of splenic infarcts. This is presumably embolic. 2. Atherosclerosis without evidence of vessel occlusion or focal arterial i rregularity. 3. 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 4. Status post cholecystectomy. 5. The appearance of the lung bases may suggest small airways disease, reactive airways disease, or viral bronchiolitis. ECG Data Attestation: I personally reviewed and interpreted this ECG as follows: Indication: + abdominal pain Rate (beats per minute): 59 Rhythm: + sinus bradycardia ECG Intervals/blocks: + Normal QRS ECG [place]: + Normal ECG ST segments: + Normal ST segments Change: no significant change Blood Pressure Blood Pressure Findings: Elevated blood pressure Blood Pressure Disposition: further management by hospitalist VARINDER Avila The patient is a 63-year-old female who presents today complaining of abdominal pain and vomiting. Labs revealed mild leukocytosis of 12,000, no anemia or concerning electrolyte abnormalities. Troponin was not elevated. Glucose mildly elevated at 135. CT of the abdomen and pelvis was performed with IV contrast and reviewed by radiology. This showed findings consistent with 2 separate splenic infarcts, presumably embolic. Patient found to have atherosclerosis with no evidence of a vessel occlusion or focal arterial irregularity. I did speak with Dr. Zuñiga from vascular surgery and he does not recommend anticoagulation at this time given that there is no occlusion. Patient will need to be admitted for pain control. She had fair control of her pain with Dilaudid, although this caused some significant drowsiness for her. When this began to wear off, she did complain of increasing pain and was given IV Tylenol and Phenergan for her symptoms. [facility] the patient for further care. The patient's case was discussed with Dr. Diana, who agreed with my evaluation and treatment plan. Impression & Plan Splenic infarct, Abdominal pain Discharge Plan Visit Data Chief Complaint: Abdominal Pain Stated Complaint: ABD PAIN, VOMITING ED Provider: Jaylen Diana ED Midlevel Provider: Gertchen Mathews Discharge Problem: Splenic infarct, Abdominal pain Discharge Instructions Interventions: ED Discharge Assessment Last Done: 10/04/19 21:23
[2019-10-04] MEDS ORDERED: ONDANSETRON INJ 2 MG/ML 2 ML VIAL IV PRN (23:02)
[2019-10-04] MEDS ORDERED: HYDROmorphone INJ 1 MG/ML SYRINGE IV PRN (23:02)
[2019-10-04] MEDS ORDERED: DOCUSATE SODIUM 100 MG CAP PO PRN (23:02)
[2019-10-04] MEDS ORDERED: ACETAMINOPHEN 325 MG TAB PO PRN (23:02)
[2019-10-04 23:23] LABS: Magnesium 2.1 mg/dl (1.8-2.4); Phosphorus 3.5 mg/dl (2.5-4.9)
[2019-10-05] MEDS: SODIUM CHLORIDE 0.9% 1000ML 1,000 ML IV SCH ×2 (00:37→12:23)
[2019-10-05] MEDS ORDERED: HYDROmorphone INJ 0.5 MG/0.5 ML SYR IV PRN (03:34)
[2019-10-05 06:08] LABS: Basophils # (auto) 0.01 K/uL (0-0.2); Basophils % (auto) 0.1 %; Hematocrit (blood only) 39.7 % (37-47); Hemoglobin 13.7 g/dL (12.0-16.0); Immature Granulocytes # (auto) 0.04 K/uL (0.00-0.02); Immature Granulocytes % (auto) 0.3 %; Lymphocytes # (auto) 1.37 K/uL (1.2-3.4); Lymphocytes % (auto) 9.2 %; Mean Corpuscular Hgb Conc 34.5 g/dL (32-36); Mean Corpuscular Volume 87.1 fL (80-100); Mean Platelet Volume 9.9 fL (7.4-10.4); Monocytes # (auto) 0.73 K/uL (0.11-0.59); Monocytes % (auto) 4.9 %; Neutrophils # (auto) 12.68 K/uL (1.4-6.5); Neutrophils % (auto) 85.5 %; Platelet Count 293 K/uL (130-400); RDW Coefficient of Variation 13.9 % (11.5-14.5); RDW Standard Deviation 43.5 fL (36.4-46.3); Red Blood Count 4.56 M/uL (4.2-5.4); White Blood Count 14.83 K/uL (4.8-10.8)
[2019-10-05 06:43] LABS: Alanine Aminotransferase 23 U/L (12-78); Albumin Level 3.8 gm/dl (3.4-5.0); Aspartate Aminotransferase 27 U/L (15-37); BUN Creatinine Ratio 13.8 (10-20); Blood Urea Nitrogen 10 mg/dl (7-18); Calcium 8.7 mg/dl (8.5-10.1); Carbon Dioxide 25 mmol/L (21-32); Chloride 97 mmol/L (98-107); Est GFR (African American) 105.1; Est GFR (Non-African American) 90.7; Glucose 157 mg/dl (70-99); Potassium 3.4 mmol/L (3.5-5.1)
[2019-10-05 06:48] LABS: Alkaline Phosphatase 139 U/L (45-117); Bilirubin Direct < 0.1 mg/dl (0-0.2); Bilirubin,Total 0.5 mg/dl (0.2-1); Thyroid Stimulating Hormone 0.344 uIu/ml (0.300-4.500); Total Protein 8.7 gm/dl (6.4-8.2)
[2019-10-05] MEDS ORDERED: ENOXAPARIN INJ 40 MG/0.4 ML SYR SQ SCH (08:00)
[2019-10-05 08:06] LABS: Sodium 131 mmol/L (136-145)
[2019-10-05] MEDS: METOPROLOL SUCC 50MG EXT REL TAB PO SCH (08:56)
[2019-10-05] MEDS: PANTOprazole 40 MG TAB PO SCH (08:56)
[2019-10-05] MEDS: DOCUSATE SODIUM 100 MG CAP PO SCH (08:56)
[2019-10-05] MEDS: LEVOTHYROXINE SODIUM 75 MCG TABLET PO SCH (08:56)
[2019-10-05] MEDS ORDERED: ENOXAPARIN 1 MG/KG SQ SCH (09:00)
[2019-10-05] MEDS ORDERED: ENOXAPARIN INJ 60 MG/0.6 ML SYR SQ ONE (09:45)
[2019-10-05] MEDS: POTASSIUM CHLORIDE / WTR 10 MEQ/100 ML PLCT IV SCH ×2 (09:48→10:38)
--- NOTE | 2019-10-05 10:43 | XCELERA ---
[id number]
[2019-10-05] MEDS ORDERED: PIPERACILL/TAZOBAC CONSULT ACTIVE PRN (11:02)
[2019-10-05 11:16] LABS: Base Excess ABG 0.3 mEq/L (-9-1.8); HCO3 ABG 24 mmol/L (19-24); Oxygen Saturation ABG 95.3 % (90-95); PCO2 ABG 35 mmHg (35-46); PO2 ABG 73 mmHg (80-95); pH ABG 7.45 (7.35-7.45)
[2019-10-05 11:21] LABS: Allen Test Pos (Pos)
--- NOTE | 2019-10-05 11:28 | Hospitalist Progress Note ---
Date of Service October 05, 2019 Assessment & Plan (1) Splenic infarct: This pt is a 63yo C female presenting with acute onset abdominal pain, found to have two regions of hypoenhancement in the spleen which is characteristic of splenic infarcts, presumably embolic in nature. Also noted to have atherosclerosis of the aorta without clot or dilatation, s/p cholecystectomy and Kylie-en-Y gastric bypass surgery. Lung bases suggestive of small airway disease, reactive disease or viral bronchiolitis. Patient with no prior history of blood clots/VTE. Overall she denies complaint of fever/chills/body aches/cough/SOB. 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 Patient without known hematologic disease or dyscrasia. Lipase is WNL. Per review of literature, SARS-CoV-2 is associated with increased risk of coagulopathy and thromboembolic events. While it is unlikely that Covid-19 is the underlying cause for her acute presentation in the setting of splenic infarct from suspected thromboembolism and small airway disease of lung bases - she had SARS-CoV-2 testing which was NEGATIVE. Also found today to have multiple embolic acute CVAs on brain imaging as below With low grade temps and worsening leukocytosis--> likely secondary to splenic infarct, but will check blood cultures and add on empiric ZOsyn ECHO with no thrombus and no valvular abnormalities Tele with short burst atrial tachycardia so far, but no Afib/flutter and no h/o such in the past as per pt or her daughter -started Lovenox therapeutic dosing, but now will switch to heparin gtt given multiple large CVAs as below in case of hemorrhagic conversion -no mesenteric vessel occlusion or need for Vascular intervention Appreciate Surgery consultation-no surgical need at this time, no evidence of splenic abscess -Pain control PRN w/ tylenol only so as not to cloud her mental status -Gentle hydration with 2L NS ordered -Zofran PRN -continue tele monitoring to look for occult Afib/flutter (2) Encephalopathy acute: Was lethargic through the night and this AM persisted despite not receiving any sedating meds in over 12 hours With low grade temps and worsening leukocytosis, splenic infarct, thought given to early sepsis--> lactate normal, abg normal -blood cultures drawn-follow Empiric Zosyn started in case of developing infection from splenic infarct- continue x 48 hours until BCxs no growth -CT head with acute/subacute CVAs -MRI brain with numerous acute and subacute CVAs as below--> most likely cause of encephalopathy although still could be some infectious component COVID-19 negative -follow (3) Acute CVA (cerebrovascular accident): As above, with AMS and found to have numerous strokes on brain MRI in posterior circulation, seems embolic in nature especially in light of splenic infarcts -ECHO without abnormality, no thrombus seen -continue tele monitoring -consider LONA, appreciate Cardio consult -will need loop recorder vs 30 day event monitor after discharge if no Afib found here -received therapeutic Lovenox this AM and now convert to heparin gtt as higher risk for hemorrhagic conversion of large numerous strokes Fortunately, her lethargy and confusion have improved throughout the day CTA head/neck no vascular occlusions -nausea is improved Keep MAPs around 100-is on Toprol so will watch this -stroke order set--> Neuro checks, Neuro consult, PT/OT/Speech Tx ordered -no ASA needed as per my d/w Neuro as most likely embolic and starting anticoagulation -start statin and check lipids in AM -check HgbA1C in AM -avoid sedating medications (4) Leukocytosis: 12k on admission and up to 14k today, with low grade temps UA without infection CXR negative but bottoms of lungs on CT abd/pel with appearance of viral bronchiolitis--> but no SOB, no cough, not likely PNA Could be from splenic infarcts Was having a mild runny nose prior to admission thought to be from allergies COVID 19 negative, Biofire negative -check BCxs -empiric abx with Zosyn for intra-abdominal source -follow CBC (5) Hypokalemia: mild, replace with IV KCl follow BMP (6) Nausea & vomiting: associated with acute CVAs in cerebellum plus splenic infarcts -resolved -continue antiemetics prn -received IVFs (7) Hyponatremia: Na+ dropped down to 131 today Could be from poor po intake -now receiving 2L NS and should be improved by tomorrow (8) Sleep apnea: not on CPAP (9) GERD (gastroesophageal reflux disease): Patient with history of GERD, Barretts esophagus with esophageal dilatation in the past. EGD 11/2018 with hiatal hernia, Schatzki ring which was dilated -Continue Omeprazole 20mg po daily (10) Hypothyroidism: Chronic -TSH her enormal -Continue Synthroid 75mcg po daily (11) DVT prophylaxis: Heparin gtt Dispo-guarded prognosis Updated daughter Monica by phone on 3 occasions today Admission and Anticipated Discharge Date Admission Date: October 04, 2019 Subjective Pt was seen twice today and also called her daughter on three occasions, spoke with Neurology and Cardiology as well as General Surgery regarding her case. This AM, RN noted pt to be very lethargic and confused despite not receiving any pain meds or nausea meds for over 12 hours. She was however able to get out of bed and ambulate to the bathroom. I came to assess the pt and noted the same. She said only minimal abdominal pain, but was falling asleep mid-sentence. She was oriented only to person and did not know why she was in the hospital. She denies headache but her BP was elevated today. She denies chest pain or SOB. She had no facial droop or pronator drift. SHe had full strength throughout her extremities, speech was normal, but she was confused and lethargic. She was also noted to have a low grade fever, leukocytosis worsening. Tele with NSR and one 7 beat run of atrial tachycardia. RN was told in report that pt was tired throughout the night but would wake up and answer questions. 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 She came home after 1 PM that day and said she was going to bed. Shortly after that, the daughter heard her making noises and went to check on her and she was c/o nausea and abdominal pain and she vomited. She was not confused at that time. The pt's fiance' brought her to the ER but then was not present with her during admission. She was noted to be in a lot of pain but was not confused upon admission. It is unclear when this mental status change actually occurred. After workup throughout the day, pt was noted to have significant improvement. Initially she was moved to airborne precautions and I was going to repeat her COVID testing given the low grade fever, AMS, and worsening leukocytosis. However, after speaking to Dr. Yu/[employer], he recommended waiting at least 24 hours since the last COVID test to repeat it if I strongly suspected COVID. Because of precautions, she could not have urgent imaging done as per hospital policy. Because she continued to be encephalopathic , I asked that she be allowed to have a STAT head CT and given that sh ehad a negative COVID test last evening, CT agreed to let her come down (they said they would then have to shut down the scanner for two hours to clean it). FOund to have strokes and then since that was the cause of her encephalopathy, I discontinued her airborne precautions and felt COVID was not likely at that point. She was then sent for a brain MRI which showed numerous strokes in posterior circulation. In the evening, pt was oriented x 3, much more awake and alert, recalled most of the events of the previous day, and was no longer nauseated. Review of Systems Review of Systems: All systems reviewed & are unremarkable except as noted in HPI & below Physical Exam Constitutional: WD/WN, vitals as above Eyes: PERRL, conjunctivae normal, anicteric sclerae ENMT: external ear and nose normal, oropharynx normal Neck: trachea midline, no thyromegaly Respiratory: normal respiratory effort, lungs clear to auscultation Cardiovascular: RRR, no murmur, no edema Chest (Breasts): Chest: normal inspection of chest Gastrointestinal (Abdomen): Inspection/Auscultation: normal bowel sounds; + abdomen abnormal to inspection (incisional scars from previous laparoscopic surgery present) and abdomen not distended Percussion/Palpation: + abdomen tender (mild in LUQ w/o guarding or rebound tenderness) and abdomen soft Musculoskeletal: Extremities: extremities normal to inspection; no cyanosis and no clubbing Skin: no rashes, warm and dry Neurologic: CN's II-XI intact bilaterally, deep tendon reflexes 2+ bi laterally, moves all extremities and + confused; no focal motor deficits Motor/Sensory: no tremor, no pronator drift and no sensory deficit Psychiatric: Orientation: alert and oriented x 3 (later in day but earlier was only oriented to person) Lymphatic: no lymphedema Results & Data Results & Data ([facility]) Vital Signs (Past 12 Hours) Vital Signs Temp Pulse Pulse Pulse Resp BP Pulse Ox 10/05/19 09:01 80 169/80 H 10/05/19 07:34 86 10/05/19 07:12 37.6 C H 77 20 181/108 H 96 10/05/19 03:33 37.0 C 79 16 166/97 H 95 10/05/19 01:45 69 10/05/19 00:39 37.1 C 64 16 160/74 H 94 10/05/19 00:00 37.0 C 65 18 172/94 H 93 Laboratory Results 10/05/19 10/05/19 10/05/19 Range/Units 11:51 11:51 11:05 WBC (4.8-10.8) K/uL RBC (4.2-5.4) M/uL Hgb (12.0-16.0) g/dL Hct (37-47) % MCV (80-100) fL MCH (25-34) pg MCHC (32-36) g/dL RDW Std Deviation (36.4-46.3) fL RDW Coeff of Iqra (11.5-14.5) % Plt Count (130-400) K/uL MPV (7.4-10.4) fL Immature Gran % (Auto) % Neut % (Auto) % Lymph % (Auto) % Wallace % (Auto) % Eos % (Auto) % Baso % (Auto) % Immature Gran # (Auto) (0.00-0.02) K/uL Neut # (Auto) (1.4-6.5) K/uL Lymph # (Auto) (1.2-3.4) K/uL Wallace # (Auto) (0.11-0.59) K/uL Eos # (Auto) (0-0.5) K/uL Baso # (Auto) (0-0.2) K/uL ABG pH 7.45 (7.35-7.45) ABG pCO2 35 (35-46) mmHg ABG pO2 73 L (80-95) mmHg ABG HCO3 24 (19-24) mmol/L ABG O2 Saturation 95.3 H (90-95) % ABG Base Excess 0.3 (-9-1.8) mEq/L Jesús Test Pos (Pos) Barometric Pressure 733.9 mm/Hg Oxygen Given Room Air Sodium (136-145) mmol/L Potassium (3.5-5.1) mmol/L Chloride (98-107) mmol/L Carbon Dioxide (21-32) mmol/L Anion Gap (3-11) BUN (7-18) mg/dl Creatinine (0.6-1.2) mg/dl Est Cr Clr Drug Dosing ml/min Est GFR ( Amer) Est GFR (Non-Af Amer) BUN/Creatinine Ratio (10-20) Glucose (70-99) mg/dl Estimat Average Glucose Hemoglobin A1c Lactate (0.4-2.0) mmol/L Calcium (8.5-10.1) mg/dl Phosphorus (2.5-4.9) mg/dl Magnesium (1.8-2.4) mg/dl Total Bilirubin (0.2-1) mg/dl Direct Bilirubin (0-0.2) mg/dl AST (15-37) U/L ALT (12-78) U/L Alkaline Phosphatase (45-117) U/L Total Protein (6.4-8.2) gm/dl Albumin (3.4-5.0) gm/dl TSH (0.300-4.500) uIu/ml Adenovirus (PCR) Not Detected (NotDetected) B. pertussis DNA (PCR) Not Detected (NotDetected) B.parapertussis DNA PCR Not Detected (NotDetected) C. pneumoniae DNA (PCR) Not Detected (NotDetected) Coronavirus OC43 (PCR) Not Detected (NotDetected) Coronavirus HKU1 (PCR) Not Detected (NotDetected) Coronavirus 229E (PCR) Not Detected (NotDetected) COVID-19 PCR (Negative) Coronavirus NL63 (PCR) Not Detected (NotDetected) Human Metapneumovir PCR Not Detected (NotDetected) Influenza Type A (PCR) Not Detected (NotDetected) Influenza Type B (PCR) Not Detected (NotDetected) M. pneumoniae (PCR) Not Detected (NotDetected) Parainfluenza 1 (PCR) Not Detected (NotDetected) Parainfluenza 2 (PCR) Not Detected (NotDetected) Parainfluenza 3 (PCR) Not Detected (NotDetected) Parainfluenza 4 (PCR) Not Detected (NotDetected) RSV (PCR) Not Detected (NotDetected) Entero/Rhino (PCR) Not Detected (NotDetected) SARS-CoV-2 RNA (RT-PCR) Pending 10/05/19 10/05/19 10/05/19 Range/Units 11:04 05:22 05:22 WBC (4.8-10.8) K/uL RBC (4.2-5.4) M/uL Hgb (12.0-16.0) g/dL Hct (37-47) % MCV (80-100) fL MCH (25-34) pg MCHC (32-36) g/dL RDW Std Deviation (36.4-46.3) fL RDW Coeff of Iqra (11.5-14.5) % Plt Count (130-400) K/uL MPV (7.4-10.4) fL Immature Gran % (Auto) % Neut % (Auto) % Lymph % (Auto) % Wallace % (Auto) % Eos % (Auto) % Baso % (Auto) % Immature Gran # (Auto) (0.00-0.02) K/uL Neut # (Auto) (1.4-6.5) K/uL Lymph # (Auto) (1.2-3.4) K/uL Wallace # (Auto) (0.11-0.59) K/uL Eos # (Auto) (0-0.5) K/uL Baso # (Auto) (0-0.2) K/uL ABG pH (7.35-7.45) ABG pCO2 (35-46) mmHg ABG pO2 (80-95) mmHg ABG HCO3 (19-24) mmol/L ABG O2 Saturation (90-95) % ABG Base Excess (-9-1.8) mEq/L Jesús Test (Pos) Barometric Pressure mm/Hg Oxygen Given Sodium 131 L D (136-145) mmol/L Potassium 3.4 L (3.5-5.1) mmol/L Chloride 97 L (98-107) mmol/L Carbon Dioxide 25 (21-32) mmol/L Anion Gap 9.0 (3-11) BUN 10 D (7-18) mg/dl Creatinine 0.71 (0.6-1.2) mg/dl Est Cr Clr Drug Dosing 91.0 ml/min Est GFR ( Amer) 105.1 Est GFR (Non-Af Amer) 90.7 BUN/Creatinine Ratio 13.8 (10-20) Glucose 157 H (70-99) mg/dl Estimat Average Glucose Pending Hemoglobin A1c Pending Lactate 0.9 (0.4-2.0) mmol/L Calcium 8.7 (8.5-10.1) mg/dl Phosphorus (2.5-4.9) mg/dl Magnesium (1.8-2.4) mg/dl Total Bilirubin 0.5 (0.2-1) mg/dl Direct Bilirubin < 0.1 (0-0.2) mg/dl AST 27 (15-37) U/L ALT 23 (12-78) U/L Alkaline Phosphatase 139 H (45-117) U/L Total Protein 8.7 H (6.4-8.2) gm/dl Albumin 3.8 (3.4-5.0) gm/dl TSH 0.344 (0.300-4.500) uIu/ml Adenovirus (PCR) (NotDetected) B. pertussis DNA (PCR) (NotDetected) B.parapertussis DNA PCR (NotDetected) C. pneumoniae DNA (PCR) (NotDetected) Coronavirus OC43 (PCR) (NotDetected) Coronavirus HKU1 (PCR) (NotDetected) Coronavirus 229E (PCR) (NotDetected) COVID-19 PCR (Negative) Coronavirus NL63 (PCR) (NotDetected) Human Metapneumovir PCR (NotDetected) Influenza Type A (PCR) (NotDetected) Influenza Type B (PCR) (NotDetected) M. pneumoniae (PCR) (NotDetected) Parainfluenza 1 (PCR) (NotDetected) Parainfluenza 2 (PCR) (NotDetected) Parainfluenza 3 (PCR) (NotDetected) Parainfluenza 4 (PCR) (NotDetected) RSV (PCR) (NotDetected) Entero/Rhino (PCR) (NotDetected) SARS-CoV-2 RNA (RT-PCR) 10/05/19 10/04/19 10/04/19 Range/Units 05:22 20:17 15:40 WBC 14.83 H (4.8-10.8) K/uL RBC 4.56 (4.2-5.4) M/uL Hgb 13.7 (12.0-16.0) g/dL Hct 39.7 (37-47) % MCV 87.1 (80-100) fL MCH 30.0 (25-34) pg MCHC 34.5 (32-36) g/dL RDW Std Deviation 43.5 (36.4-46.3) fL RDW Coeff of Iqra 13.9 (11.5-14.5) % Plt Count 293 (130-400) K/uL MPV 9.9 (7.4-10.4) fL Immature Gran % (Auto) 0.3 % Neut % (Auto) 85.5 % Lymph % (Auto) 9.2 % Wallace % (Auto) 4.9 % Eos % (Auto) 0.0 % Baso % (Auto) 0.1 % Immature Gran # (Auto) 0.04 H (0.00-0.02) K/uL Neut # (Auto) 12.68 H (1.4-6.5) K/uL Lymph # (Auto) 1.37 (1.2-3.4) K/uL Wallace # (Auto) 0.73 H (0.11-0.59) K/uL Eos # (Auto) 0.00 (0-0.5) K/uL Baso # (Auto) 0.01 (0-0.2) K/uL ABG pH (7.35-7.45) ABG pCO2 (35-46) mmHg ABG pO2 (80-95) mmHg ABG HCO3 (19-24) mmol/L ABG O2 Saturation (90-95) % ABG Base Excess (-9-1.8) mEq/L Jesús Test (Pos) Barometric Pressure mm/Hg Oxygen Given Sodium (136-145) mmol/L Potassium (3.5-5.1) mmol/L Chloride (98-107) mmol/L Carbon Dioxide (21-32) mmol/L Anion Gap (3-11) BUN (7-18) mg/dl Creatinine (0.6-1.2) mg/dl Est Cr Clr Drug Dosing ml/min Est GFR ( Amer) Est GFR (Non-Af Amer) BUN/Creatinine Ratio (10-20) Glucose (70-99) mg/dl Estimat Average Glucose Hemoglobin A1c Lactate (0.4-2.0) mmol/L Calcium (8.5-10.1) mg/dl Phosphorus 3.5 (2.5-4.9) mg/dl Magnesium 2.1 (1.8-2.4) mg/dl Total Bilirubin (0.2-1) mg/dl Direct Bilirubin (0-0.2) mg/dl AST (15-37) U/L ALT (12-78) U/L Alkaline Phosphatase (45-117) U/L Total Protein (6.4-8.2) gm/dl Albumin (3.4-5.0) gm/dl TSH (0.300-4.500) uIu/ml Adenovirus (PCR) (NotDetected) B. pertussis DNA (PCR) (NotDetected) B.parapertussis DNA PCR (NotDetected) C. pneumoniae DNA (PCR) (NotDetected) Coronavirus OC43 (PCR) (NotDetected) Coronavirus HKU1 (PCR) (NotDetected) Coronavirus 229E (PCR) (NotDetected) COVID-19 PCR NEGATIVE (Negative) Coronavirus NL63 (PCR) (NotDetected) Human Metapneumovir PCR (NotDetected) Influenza Type A (PCR) (NotDetected) Influenza Type B (PCR) (NotDetected) M. pneumoniae (PCR) (NotDetected) Parainfluenza 1 (PCR) (NotDetected) Parainfluenza 2 (PCR) (NotDetected) Parainfluenza 3 (PCR) (NotDetected) Parainfluenza 4 (PCR) (NotDetected) RSV (PCR) (NotDetected) Entero/Rhino (PCR) (NotDetected) SARS-CoV-2 RNA (RT-PCR) PG Care Time/CCT Total # of Minutes Spent Total Time Spent with Patient: Total time spent is greater than 50% in coordination of care (as documented) at patient's floor/unit and/or counseling patient: Prolonged Care Time Prolonged Care Time: Yes Total Prolonged Care Time: 100 Coding Level of Care Code 87333 Subseq Hosp Care Lvl 3 (25 - SIGNIFICANT, SEPARATELY IDENTIFIABLE ) Diagnoses Splenic infarct D73.5 Encephalopathy acute G93.40 Acute CVA (cerebrovascular accident) I63.9 Leukocytosis D72.829 Hypokalemia E87.6 Nausea & vomiting R11.2 Hyponatremia E87.1 Sleep apnea G47.30 GERD (gastroesophageal reflux disease) K21.0 Esophagitis presence: with esophagitis Hypothyroidism E03.9 Hypothyroidism type: unspecified DVT prophylaxis Z29.9 Additional Codes Prolonged Care Time - Prolonged Care Time: Yes ([id number]) (1) Hypothyroidism Hypothyroidism type: unspecified Qualified Code(s): E03.9 - Hypothyroidism, unspecified (2) GERD (gastroesophageal reflux disease) Esophagitis presence: with esophagitis Qualified Code(s): K21.0 - Gastro- esophageal reflux disease with esophagitis
[2019-10-05] MEDS ORDERED: PIPERACILLIN/TAZOBACTAM 4.5 GM in DEXTROSE 5% 100 ML IV ONE (12:00)
[2019-10-05 13:05] LABS: Adenovirus PCR Not Detected (NotDetected); Coronavirus 229E PCR Not Detected (NotDetected); Coronavirus HKU1 PCR Not Detected (NotDetected); Coronavirus NL63 PCR Not Detected (NotDetected); Coronavirus OC43PCR Not Detected (NotDetected); Human Metapneumovirus PCR Not Detected (NotDetected); Influenza A PCR Not Detected (NotDetected); Influenza B PCR Not Detected (NotDetected); Parainfluenza Virus 1 PCR Not Detected (NotDetected); Parainfluenza Virus 2 PCR Not Detected (NotDetected); Parainfluenza Virus 3 PCR Not Detected (NotDetected); Parainfluenza Virus 4 PCR Not Detected (NotDetected); Respiratory Syncytial VirusPCR Not Detected (NotDetected); Rhinovirus/Enterovirus PCR Not Detected (NotDetected)
[2019-10-05 13:06] LABS: Bordetella parapertussis PCR Not Detected (NotDetected); Bordetella pertussis PCR Not Detected (NotDetected); Chlamydia pneumoniae PCR Not Detected (NotDetected); Mycoplasma pneumoniae PCR Not Detected (NotDetected)
--- NOTE | 2019-10-05 13:22 | Surgery Consultation ---
Date of Consultation October 05, 2019 Assessment & Plan (1) Splenic infarct: splenic infarcts no sign or symptoms of abscess would treat possible sepsis from different location other than abdomen abdomen benign without tenderness no surgical issues on exam or radiographically History of Present Illness Reason for Consultation: splenic infarct Attending Physician: Susan Aldana MD History of Present Illness This is a 63yo female presenting with a few day history of acute onset abdominal pain, she was admitted and became more confused this AM. She was found to have two regions of hypoenhancement in the spleen which is characteristic of splenic infarcts, presumably embolic in nature. She has atherosclerosis of the aorta without clot or dilatation. The patient with no prior history of blood clots or PE. She denies fever/chills/body aches/cough/SOB. She denies recent travel, sick contacts or contact with Covid-19 positive persons. The pain is not severe and she has no significant associated factors today. Patient without known hematologic disease or dyscrasia. Lipase is WNL. She is afebrile, hemodyna mically stable. She is s/p cholecystectomy and Kylie-en-Y gastric bypass surgery. Allergies Allergy/AdvReac Type Severity Reaction Status Date / Time No Known Allergies Allergy Verified 10/04/19 19:07 Home Medications Home Medications Medication Instructions Recorded Confirmed Type Women's Multivitamin 1 tab PO QAM 04/01/18 10/04/19 History calcium citrate-vitamin D3 2 tab PO QAM 04/01/18 10/04/19 History [Citracal + D Maximum] docusate sodium 200 mg PO QAM 04/01/18 10/04/19 History levothyroxine 75 mcg PO QAM 04/01/18 10/04/19 History omeprazole 20 mg PO QAM 04/01/18 10/04/19 History meloxicam 15 mg PO DAILY 10/04/19 10/04/19 History metoprolol succinate 50 mg PO DAILY 10/04/19 10/04/19 History Patient History Medical History Barretts esophagus Colon polyps Fatty liver disease, nonalcoholic GERD (gastroesophageal reflux disease) History of esophageal dilatation Hypothyroidism Migraine Nausea and vomiting after administration of anesthetic agent Osteoarthritis Sleep apnea doesn't use CPAP as ordered Surgical History History of bilateral cataract extraction History of carpal tunnel release bilt History of cholecystectomy History of colonoscopy History of dilatation and curettage History of esophagogastroduodenoscopy (EGD) History of gastric bypass History of repair of hiatal hernia History of tooth extraction wisdom teeth Social History Preferred Language: Tristanian Communication Ability: Effective Director Of Communications Required: No Beliefs That Will Affect Care: None Current Living Situation: Family Current Living Situation Comment: lives with fiance, daughter and grandson Feels Safe at Home: Yes Smoking Status: Former smoker Tobacco Type: cigarettes ; Second Hand Exposure: Yes ; Hx Alcohol Use: Yes Alcohol type: beer Hx Substance Use: No Review of Systems Constitutional: no fever, no chills and no sweats Respiratory: no cough, no chest congestion and no dyspnea Cardiovascular: no chest pain Gastrointestinal: + abdominal pain; no nausea, no vomiting, no hematemesis, no change in bowel habits, no diarrhea/loose stools and no blood in stools Genitourinary: no dysuria Musculoskeletal: no back pain, no neck pain and no joint pain Integumentary: no rash and no lesions Neurologic: no localized weakness and no generalized weakness Psychiatric: no depression Endocrine: + fatigue Hematologic / Lymphatic: no easy bleeding and no easy bruising Physical Exam Constitutional: well developed and well nourished Neck: trachea midline Respiratory: normal respiratory effort, lungs clear to auscultation Cardiovascular: RRR, no murmur, no edema Gastrointestinal (Abdomen): normal bowel sounds, soft, nontender, no hepatosplenomegaly Musculoskeletal: Head/Neck/Chest: + head abnormal to inspection, normocephalic and neck supple Skin: no rashes, warm and dry Neurologic: moves all extremities Psychiatric: Orientation: alert Results & Data Vital Signs (Past 12 Hours) Vital Signs Temp Pulse Pulse Pulse Resp BP Pulse Ox 10/05/19 13:14 78 10/05/19 13:13 37.5 C 77 16 165/89 H 95 10/05/19 09:01 80 169/80 H 10/05/19 07:34 86 10/05/19 07:12 37.6 C H 77 20 181/108 H 96 10/05/19 03:33 37.0 C 79 16 166/97 H 95 10/05/19 01:[address] abd pelvis IV con only CLINICAL HISTORY: 63 years-old Female presenting with epigastric pain, vomiting. TECHNIQUE: Multidetector CT of the abdomen and pelvis was performed after the administration of intravenous contrast. IV contrast: 92 mL of Optiray 320. One or more dose lowering techniques were used consistent with the principles of ALARA (as low as reasonably achievable), including automatic exposure control, mA or kV adjustment to individual patient size, and/or use of iterative reconstruction. COMPARISON: None. CT DOSE (mGy.cm): The estimated cumulative dose is 1003.12 mGy.cm. FINDINGS: Clinical Research Nurse topogram: Cholecystectomy clips. Lung bases: Normal heart size. Coronary artery and aortic valve calcification. No pericardial or pleural effusion. Mosaic attenuation at the lung bases. Mild bronchial wall thickening may be present. Patchy added density is difficult to exclude. Liver: Normal morphology. No liver lesion. Patent hepatic vasculature. Biliary: Mild biliary ductal prominence likely a reservoir effect in the post cholecystectomy state. Gallbladder surgically absent. Pancreas: Moderate parenchymal atrophy. Spleen: Focal hypoenhancement superiorly in the spleen in a wedgelike perfusion as well as inferiorly. Adrenal glands: Normal. Kidneys and ureters: Few simple cysts. No hydronephrosis. No gross nephrolithiasis. Ureters nondistended. Bladder: Normal. Pelvic organs: Uterus and ovaries normal. Bowel: Fatty atrophy of the appendix suspected. No bowel obstruction. Postsurgical changes of antecolic Kylie-en-Y gastric bypass. Patent distal anastomosis. No abnormal distention of the pancreaticobiliary limb. Peritoneal cavity: No free fluid or intraperitoneal gas. Lymph nodes: No enlarged lymph nodes in the abdomen or pelvis. Vasculature: Atherosclerosis of the normal caliber abdominal aorta. Mesenteric branch vessels appear widely patent. No focal vessel irregularity. IVC patent. Abdominal wall: Normal. Musculoskeletal: Degenerative changes of the spine. IMPRESSION: 1. Two separate geographic regions of hypoenhancement in the spleen characteristic of splenic infarcts. This is presumably embolic. 2. Atherosclerosis without evidence of vessel occlusion or focal arterial irregularity. 3. 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 4. Status post cholecystectomy. 5. The appearance of the lung bases may suggest small airways disease, reactive airways disease, or viral bronchiolitis.
--- NOTE | 2019-10-05 14:00 | XRay Report ---
XR chest 1V portable CLINICAL HISTORY: fever, r/o PNA COMPARISON STUDY: Chest CT December 24, 2006. FINDINGS: Lung volumes are normal. Lungs are clear. There is no pneumothorax or pleural effusion. Car diac size is normal. Mediastinal contours are normal. There is no evidence for pulmonary edema. IMPRESSION: No acute cardiopulmonary findings. ACT 112: Negative or not required by law. Electronically signed by: Barrett Avalos M.D. 10/05/2019 1:58 PM
--- NOTE | 2019-10-05 16:05 | CT Scan Report ---
CT OF THE HEAD WITHOUT CONTRAST CLINICAL HISTORY: Altered mental status. COMPARISON STUDY: MRI of the brain October 19, 2010. CT DOSE: 729.78 mGycm TECHNIQUE: Helical axial images of the head were obtained without IV contrast. Automated exposure con trol was utilized for the study. A dose lowering technique was utilized adhering to the principles o f ALARA. FINDINGS: No acute intracranial hemorrhage, midline shift or mass effect is present. The ventricular system is normal. The basilar cisterns are patent. There are no extra-axial collections. Note is made of a 2.7 cm hypodensity within the superior aspect of the right cerebellar hemisphere on axial image 13 of 32. There is also a 1.6 cm hypodensity within the medial left temporal lobe which may involve the hippocampus. There are no findings to suggest acute dural sinus thrombosis. There are no signific ant calvarial abnormalities. IMPRESSION: 1. 2.7 cm hypodensity within the superior right cerebellar hemisphere and 1.6 cm hypodensity within t he medial left temporal lobe which may involve the hippocampus. The findings favor acute to subacute infarcts, likely embolic. An MRI of the brain could be obtained for further evaluation. 2. No acute intracranial hemorrhage. No mass effect. ACT 112: Negative or not required by law. Electronically signed by: Barrett Avalos M.D. 10/05/2019 4:03 PM
[2019-10-05] MEDS ORDERED: PHARMACIST DISCHARGE MED REC CONSULT PRN (16:12)
--- NOTE | 2019-10-05 16:22 | Cardiology Consultation ---
Date of Consultation October 05, 2019 Assessment & Plan (1) Stroke: (2) Splenic infarct: ASSESSMENT/PLAN: 1. Stroke: She appears to be having an embolic phenomenon with unknown etiology. She does have atherosclerosis reported in her aorta which could cause embolic issues if she has atherosclerosis in the ascending aorta or arch. Also, would consider the potential for undiagnosed atrial fibrillation or flutter. She is being anticoagulated by the primary hospitalist service. Would recommend continuation of telemetry while hospitalized to evaluate for arrhythmia. On discharge, would consider 30 day event monitor versus loop recorder to further investigate, if no arrhythmia noted while hospitalized. Would also consider hypercoagulable workup. Although not urgent, will also consider further cardiac imaging if no other etiology for her stroke is noted, to evaluate for right-to- left shunt. Neurology consultation is pending. 2. Splenic infarct: Plan as above. 3. Disposition: Please call with any other questions or concerns. Plan of care discussed with Dr. Aldana of the primary hospitalist service. Thank you for allowing me to participate in the care of your patient. Please call for any other questions or concerns. Sincerely, Jean Pierre Walsh M.D. History of Present Illness Reason for Consultation: "Embolic splenic infarcts, question occult Afib" Requesting Physician: Dr. Aldana Attending Physician: Susan Aldana MD History of Present Illness Ms. Ford is a 63-year-old female who was admitted with splenic infarcts thought to be embolic in nature. Consultation was initially requested by Dr. Aldana. Dr. Aldana then contacted me via telephone to inform me that there is suspicion that she may have Covid- 19, and that I should not see the patient in person as there is no documented cardiac issue at this time. Therefore, history was not obtained via the patient. History was obtained via discussion with Dr. Aldana, nursing staff, and reviewing the chart. She apparently has declined for mental status standpoint and has had difficulty caring on conversations according to nursing staff. Low-grade fevers have been reported. She has repeat testing pending for the cramer virus. Initial testing has been negative. Patient was visualized via the hallway and appeared somnolent with her eyes closed. She did intermittently open her eyes and move her hands. She is under isolation. Review of systems: Not obtained. Family history: Not obtained. Social history: Not obtained. Allergies Allergy/AdvReac Type Severity Reaction Status Date / Time No Known Allergies Allergy Verified 10/04/19 19:07 Home Medications Home Medications Medication Instructions Recorded Confirmed Type Women's Multivitamin 1 tab PO QAM 04/01/18 10/04/19 History calcium citrate-vitamin D3 2 tab PO QAM 04/01/18 10/04/19 History [Citracal + D Maximum] docusate sodium 200 mg PO QAM 04/01/18 10/04/19 History levothyroxine 75 mcg PO QAM 04/01/18 10/04/19 History omeprazole 20 mg PO QAM 04/01/18 10/04/19 History meloxicam 15 mg PO DAILY 10/04/19 10/04/19 History metoprolol succinate 50 mg PO DAILY 10/04/19 10/04/19 History Patient History Medical History Barretts esophagus Colon polyps Fatty liver disease, nonalcoholic GERD (gastroesophageal reflux disease) History of esophageal dilatation Hypothyroidism Migraine Nausea and vomiting after administration of anesthetic agent Osteoarthritis Sleep apnea doesn't use CPAP as ordered Surgical History History of bilateral cataract extraction History of carpal tunnel release bilt History of cholecystectomy History of colonoscopy History of dilatation and curettage History of esophagogastroduodenoscopy (EGD) History of gastric bypass History of repair of hiatal hernia History of tooth extraction wisdom teeth Social History Preferred Language: Lithuanian Communication Ability: Effective Oil Operator Required: No Beliefs That Will Affect Care: None Current Living Situation: Family Current Living Situation Comment: lives with fiance, daughter and grandson Feels Safe at Home: Yes Smoking Status: Former smoker Tobacco Type: cigarettes ; Second Hand Exposure: Yes ; Hx Alcohol Use: Yes Alcohol type: beer Hx Substance Use: No Physical Exam Physical Exam: Deferred. Results & Data ([facility]) Vital Signs (Past 12 Hours) Vital Signs Temp Pulse Pulse Resp BP Pulse Ox 10/05/19 14:52 37.7 C H 83 18 159/88 H 95 10/05/19 13:14 78 10/05/19 13:13 37.5 C 77 16 165/89 H 95 10/05/19 09:01 80 169/80 H 10/05/19 07:34 86 10/05/19 07:12 37.6 C H 77 20 181/108 H 96 Laboratory Results Laboratory Results - last 24 hr 10/04/19 10/04/19 10/04/19 15:40 15:40 18:48 WBC RBC Hgb Hct MCV MCH MCHC RDW Std Deviation RDW Coeff of Iqra Plt Count MPV Immature Gran % (Auto) Neut % (Auto) Lymph % (Auto) [place] % (Auto) Eos % (Auto) Baso % (Auto) Immature Gran # (Auto) Neut # (Auto) Lymph # (Auto) [place] # (Auto) Eos # (Auto) Baso # (Auto) PT 11.4 INR 1.1 APTT 24.8 PTT Ratio 0.9 ABG pH ABG pCO2 ABG pO2 ABG HCO3 ABG O2 Saturation ABG Base Excess Jesús Test Barometric Pressure Oxygen Given Sodium 138 Potassium 3.6 Chloride 106 Carbon Dioxide 26 Anion Gap 5.0 BUN 16 Creatinine 0.80 Est Cr Clr Drug Dosing Not Reportable Est GFR ( Amer) 90.9 Est GFR (Non-Af Amer) 78.5 BUN/Creatinine Ratio 19.5 Glucose 135 H Lactate Calcium 8.8 Phosphorus 3.5 Magnesium 2.1 Total Bilirubin 0.3 Direct Bilirubin AST 19 ALT 21 Alkaline Phosphatase 130 H Troponin I < 0.015 Total Protein 8.2 Albumin 3.7 Globulin 4.5 H Albumin/Globulin Ratio 0.8 L Lipase 104 TSH Urine Color Yellow Urine Appearance Clear Urine pH 7.5 Ur Specific [place] 1.025 Urine Protein 1+ H Urine Glucose (UA) Negative Urine Ketones 1+ H Urine Blood 1+ H Urine Nitrite Negative Urine Bilirubin Negative Urine Urobilinogen Negative Ur Leukocyte Esterase Negative Urine WBC (Auto) 1-5 Urine RBC (Auto) 5-10 H U Hyaline Cast (Auto) 0 U Epithel Cells (Auto) 5-10 H Urine Bacteria (Auto) Negative Adenovirus (PCR) B. pertussis DNA (PCR) B.parapertussis DNA PCR C. pneumoniae DNA (PCR) Coronavirus OC43 (PCR) Coronavirus HKU1 (PCR) Coronavirus 229E (PCR) COVID-19 PCR Coronavirus NL63 (PCR) Human Metapneumovir PCR Influenza Type A (PCR) Influenza Type B (PCR) M. pneumoniae (PCR) Parainfluenza 1 (PCR) Parainfluenza 2 (PCR) Parainfluenza 3 (PCR) Parainfluenza 4 (PCR) RSV (PCR) Entero/Rhino (PCR) SARS-CoV-2 RNA (RT-PCR) 10/04/19 10/04/19 10/05/19 20:17 20:17 05:22 WBC 14.83 H RBC 4.56 Hgb 13.7 Hct 39.7 MCV 87.1 MCH 30.0 MCHC 34.5 RDW Std Deviation 43.5 RDW Coeff of Iqra 13.9 Plt Count 293 MPV 9.9 Immature Gran % (Auto) 0.3 Neut % (Auto) 85.5 Lymph % (Auto) 9.2 [place] % (Auto) 4.9 Eos % (Auto) 0.0 Baso % (Auto) 0.1 Immature Gran # (Auto) 0.04 H Neut # (Auto) 12.68 H Lymph # (Auto) 1.37 [place] # (Auto) 0.73 H Eos # (Auto) 0.00 Baso # (Auto) 0.01 PT INR APTT PTT Ratio ABG pH ABG pCO2 ABG pO2 ABG HCO3 ABG O2 Saturation ABG Base Excess Jesús Test Barometric Pressure Oxygen Given Sodium Potassium Chloride Carbon Dioxide Anion Gap BUN Creatinine Est Cr Clr Drug Dosing Est GFR ( Amer) Est GFR (Non-Af Amer) BUN/Creatinine Ratio Glucose Lactate Calcium Phosphorus Magnesium Total Bilirubin Direct Bilirubin AST ALT Alkaline Phosphatase Troponin I Total Protein Albumin Globulin Albumin/Globulin Ratio Lipase TSH Urine Color Urine Appearance Urine pH Ur Specific [place] Urine Protein Urine Glucose (UA) Urine Ketones Urine Blood Urine Nitrite Urine Bilirubin Urine Urobilinogen Ur Leukocyte Esterase Urine WBC (Auto) Urine RBC (Auto) U Hyaline Cast (Auto) U Epithel Cells (Auto) Urine Bacteria (Auto) Adenovirus (PCR) B. pertussis DNA (PCR) B.parapertussis DNA PCR C. pneumoniae DNA (PCR) Coronavirus OC43 (PCR) Coronavirus HKU1 (PCR) Coronavirus 229E (PCR) COVID-19 PCR NEGATIVE Coronavirus NL63 (PCR) Human Metapneumovir PCR Influenza Type A (PCR) Influenza Type B (PCR) M. pneumoniae (PCR) Parainfluenza 1 (PCR) Parainfluenza 2 (PCR) Parainfluenza 3 (PCR) Parainfluenza 4 (PCR) RSV (PCR) Entero/Rhino (PCR) SARS-CoV-2 RNA (RT-PCR) Cancelled 10/05/19 10/05/19 10/05/19 05:22 11:04 11:05 WBC RBC Hgb Hct MCV MCH MCHC RDW Std Deviation RDW Coeff of Iqra Plt Count MPV Immature Gran % (Auto) Neut % (Auto) Lymph % (Auto) [place] % (Auto) Eos % (Auto) Baso % (Auto) Immature Gran # (Auto) Neut # (Auto) Lymph # (Auto) [place] # (Auto) Eos # (Auto) Baso # (Auto) PT INR APTT PTT Ratio ABG pH 7.45 ABG pCO2 35 ABG pO2 73 L ABG HCO3 24 ABG O2 Saturation 95.3 H ABG Base Excess 0.3 Jesús Test Pos Barometric Pressure 733.9 Oxygen Given Room Air Sodium 131 L D Potassium 3.4 L Chloride 97 L Carbon Dioxide 25 Anion Gap 9.0 BUN 10 D Creatinine 0.71 Est Cr Clr Drug Dosing 91.0 Est GFR ( Amer) 105.1 Est GFR (Non-Af Amer) 90.7 BUN/Creatinine Ratio 13.8 Glucose 157 H Lactate 0.9 Calcium 8.7 Phosphorus Magnesium Total Bilirubin 0.5 Direct Bilirubin < 0.1 AST 27 ALT 23 Alkaline Phosphatase 139 H Troponin I Total Protein 8.7 H Albumin 3.8 Globulin Albumin/Globulin Ratio Lipase TSH 0.344 Urine Color Urine Appearance Urine pH Ur Specific [place] Urine Protein Urine Glucose (UA) Urine Ketones Urine Blood Urine Nitrite Urine Bilirubin Urine Urobilinogen Ur Leukocyte Esterase Urine WBC (Auto) Urine RBC (Auto) U Hyaline Cast (Auto) U Epithel Cells (Auto) Urine Bacteria (Auto) Adenovirus (PCR) B. pertussis DNA (PCR) B.parapertussis DNA PCR C. pneumoniae DNA (PCR) Coronavirus OC43 (PCR) Coronavirus HKU1 (PCR) Coronavirus 229E (PCR) COVID-19 PCR Coronavirus NL63 (PCR) Human Metapneumovir PCR Influenza Type A (PCR) Influenza Type B (PCR) M. pneumoniae (PCR) Parainfluenza 1 (PCR) Parainfluenza 2 (PCR) Parainfluenza 3 (PCR) Parainfluenza 4 (PCR) RSV (PCR) Entero/Rhino (PCR) SARS-CoV-2 RNA (RT-PCR) 10/05/19 10/05/19 11:51 11:51 WBC RBC Hgb Hct MCV MCH MCHC RDW Std Deviation RDW Coeff of Iqra Plt Count MPV Immature Gran % (Auto) Neut % (Auto) Lymph % (Auto) [place] % (Auto) Eos % (Auto) Baso % (Auto) Immature Gran # (Auto) Neut # (Auto) Lymph # (Auto) [place] # (Auto) Eos # (Auto) Baso # (Auto) PT INR APTT PTT Ratio ABG pH ABG pCO2 ABG pO2 ABG HCO3 ABG O2 Saturation ABG Base Excess Jesús Test Barometric Pressure Oxygen Given Sodium Potassium Chloride Carbon Dioxide Anion Gap BUN Creatinine Est Cr Clr Drug Dosing Est GFR ( Amer) Est GFR (Non-Af Amer) BUN/Creatinine Ratio Glucose Lactate Calcium Phosphorus Magnesium Total Bilirubin Direct Bilirubin AST ALT Alkaline Phosphatase Troponin I Total Protein Albumin Globulin Albumin/Globulin Ratio Lipase TSH Urine Color Urine Appearance Urine pH Ur Specific [place] Urine Protein Urine Glucose (UA) Urine Ketones Urine Blood Urine Nitrite Urine Bilirubin Urine Urobilinogen Ur Leukocyte Esterase Urine WBC (Auto) Urine RBC (Auto) U Hyaline Cast (Auto) U Epithel Cells (Auto) Urine Bacteria (Auto) Adenovirus (PCR) Not Detected B. pertussis DNA (PCR) Not Detected B.parapertussis DNA PCR Not Detected C. pneumoniae DNA (PCR) Not Detected Coronavirus OC43 (PCR) Not Detected Coronavirus HKU1 (PCR) Not Detected Coronavirus 229E (PCR) Not Detected COVID-19 PCR Coronavirus NL63 (PCR) Not Detected Human Metapneumovir PCR Not Detected Influenza Type A (PCR) Not Detected Influenza Type B (PCR) Not Detected M. pneumoniae (PCR) Not Detected Parainfluenza 1 (PCR) Not Detected Parainfluenza 2 (PCR) Not Detected Parainfluenza 3 (PCR) Not Detected Parainfluenza 4 (PCR) Not Detected RSV (PCR) Not Detected Entero/Rhino (PCR) Not Detected SARS-CoV-2 RNA (RT-PCR) Pending Diagnostic Findings CT abdomen/pelvis report reviewed: Atherosclerosis of the aorta. Two separate g eographic regions of hypo enhancement in the spleen, characteristic of splenic infarcts per Radiology. [place] [address]: 2.7 cm hypodensity within the superior right cerebellar hemisphere and 1.6 cm hypodensity within the left medial temporal lobe. Findings favor acute to subacute infarcts per Radiology, likely embolic. No intracranial hemorrhage reported. Echo 10/05/2019 personally reviewed: Normal LV size, wall motion, systolic function. EF 55-60%. Moderate left atrial dilation. Mild MR. Limited 2D echo with limited spectral Doppler and color Doppler as per request. ECG personally reviewed: ECG 10/04/2019: Sinus bradycardia 59 bpm. Telemetry personally reviewed: Sinus rhythm with 7 beat run of atrial tachycardia at 1:01 a.m.. Medications Administered Current Inpatient Medications Acetaminophen (Tylenol) 650 mg PO Q4H PRN PRN Reason: pain/fever Stop: 11/03/19 23:01 Docusate Sodium (Colace) 200 mg PO DAILY@0800 [facility] Stop: 11/04/19 07:59 Last Admin: 10/05/19 08:56 Dose: 200 mg Documented by: Docusate Sodium (Colace) 100 mg PO BID PRN PRN Reason: Constipation Stop: 11/03/19 23:01 Enoxaparin Sodium (Lovenox) 100 mg SQ Q12H [facility] Stop: 11/04/19 20:59 Sodium Chloride (Nss 1000ml) 1,000 mls @ 100 mls/hr IV .Q10H [facility] Stop: 10/05/19 19:01 Last Admin: 10/05/19 12:23 Dose: 100 mls/hr Documented by: Piperacillin Sod/Tazobactam (Sod 4.5 gm/ Dextrose) 120 mls @ 28.75 mls/hr IV Q8H [facility]; Protocol Stop: 10/07/19 11:29 Ioversol (Optiray 320 100ml) 92 ml IV ONCE PRN PRN Reason: Interaction Checking Stop: 10/08/19 16:56 Last Admin: 10/04/19 16:57 Dose: 92 ml Documented by: Levothyroxine Sodium (Synthroid) 75 mcg PO DAILY@0800 [facility] Stop: 11/04/19 07:59 Last Admin: 10/05/19 08:56 Dose: 75 mcg Documented by: Metoprolol Succinate (Toprol Xl) 50 mg PO DAILY@0800 [facility] Stop: 11/04/19 07:59 Last Admin: 10/05/19 08:56 Dose: 50 mg Documented by: Miscellaneous Information (Consult) 1 ea N/A UD PRN PRN Reason: Consult Stop: 11/04/19 11:01 Ondansetron HCl (Zofran) 4 mg IV Q6H PRN PRN Reason: Nausea Stop: 11/03/19 23:01 Last Admin: 10/05/19 06:25 Dose: 4 mg Documented by: Pantoprazole Sodium (Protonix) 40 mg PO DAILY@0800 [facility] Stop: 11/04/19 07:59 Last Admin: 10/05/19 08:56 Dose: 40 mg Documented by: PG Care Time/CCT Total # of Minutes Spent Total Time Spent with Patient: Total time spent is greater than 50% in coordination of care (as documented) at patient's floor/unit and/or counseling patient: Coding Level of Care Code 54916 Inpt Consult Level 1 Diagnoses Stroke I63.9 Splenic infarct D73.5
[2019-10-05] MEDS ORDERED: OPTIRAY 320 125ml IV PRN (17:24)
--- NOTE | 2019-10-05 17:40 | CT Scan Report ---
CT ANGIOGRAPHY OF THE NECK WITH CONTRAST CLINICAL HISTORY: acute CVA COMPARISON STUDY: No previous studies for comparison. Technique: CT angiography of the carotid and vertebral arteries was obtained using Etonkids 320 IV and 3D reconstruction on an independent workstation. NASCET criteria was utilized. Automated exposure c ontrol was utilized for the study. A dose lowering technique was utilized adhering to the principles of ALARA. CT DOSE: 976.09 mGycm Findings: Mild paraseptal emphysema is noted within the lung apices. There is no cervical lymphadenop athy. No cervical spine fracture is noted. Epiglottis is normal. There is no dissection or significan t stenosis within the major vessels within the neck. Mild atherosclerotic plaque is noted within the proximal bilateral internal carotid arteries without stenosis. The bilateral vertebral arteries are a lso patent. No intraluminal thrombus is identified. IMPRESSION: No stenosis or dissection within the major vessels of the neck. No intraluminal thrombus. Minimal ath erosclerotic plaque. ACT 112: Negative or not required by law. Electronically signed by: Barrett Avalos M.D. 10/05/2019 5:39 PM
--- NOTE | 2019-10-05 17:47 | CT Scan Report ---
CTA ANGIOGRAPHY OF THE HEAD CLINICAL HISTORY: acute CVA COMPARISON STUDY: MRI of the brain October 19, 2010. Head CT performed earlier today. TECHNIQUE: Helical axial images of the head were obtained following uneventful intravenous administr ation of 120 cc of Optiray 320. Sagittal and coronal reconstructions were viewed as well as maximal i ntensity projections on an independent 3-D workstation. Automated exposure control was utilized for the study. A dose lowering technique was utilized adhering to the principles of ALARA. FINDINGS: No acute intracranial hemorrhage, midline shift or mass effect is present. Ventricular syst em is normal. Basilar cisterns are patent. There are no extra-axial collections. A hypodensity measur ing approximately 2.5 cm within the superior right cerebellar hemisphere is noted, as shown on head C T. A smaller hypodensity within the medial left temporal lobe is also noted. The bilateral M1, M2, A1 and A2 segments are patent. An anterior communicating artery is present. A right posterior communica ting artery is present. Intracranial portions of the bilateral vertebral arteries are patent. Basilar artery and bilateral posterior cerebral arteries are patent. No abrupt vessel cut off or intralumina l thrombus is identified. No stenosis is identified within the major vessels of the head. There is no evidence for dural sinus thrombosis. IMPRESSION: 1. No abrupt vessel cut off, intraluminal thrombus or significant stenosis within the intracranial ve ssels. 2. Hypodensities within the superior right cerebellar hemisphere and medial left temporal lobe, as sh own on prior head CT. These favor acute to subacute infarcts, likely embolic. ACT 112: Negative or not required by law. Electronically signed by: Barrett Avalos M.D. 10/05/2019 5:45 PM
[2019-10-05] MEDS ORDERED: GADOBUTROL 65ML VIAL IV PRN (18:01)
--- NOTE | 2019-10-05 18:16 | Magnetic Resonance Report ---
MRI OF THE BRAIN WITHOUT AND WITH IV CONTRAST CLINICAL HISTORY: CVA seen on CT COMPARISON STUDY: MRI of the brain October 19, 2010. Head CT and CTA of the head performed earlier today . TECHNIQUE: Utilizing a 1.5 Latricia magnet and dedicated coil, multiplanar, multiecho imaging of the br ain was performed pre and postcontrast administration. IV administration of 9.5 mL of Gadavist contr ast was uneventful. FINDINGS: Note is made of multiple foci of increased signal intensity on the diffusion-weighted seque nce. These foci are mildly hypointense on the ADC map. Therefore, these reflect acute to subacute inf arcts. These include a 2.6 cm infarct within the superior right cerebellar hemisphere, a 2.5 cm infar ct within the medial left temporal lobe possibly involving hippocampus, a 1.3 cm posterior left thala rama infarct, a 2 x 1 cm left occipital lobe infarct as well as multiple smaller posterior circulation infarcts. There is no significant mass effect. No hemorrhage is present. Ventricular system is andry l. The basilar cisterns are patent. No extra-axial collections are present. No intracranial mass or p athologic enhancement is noted. Calvarial signal is normal. Orbits are unremarkable. IMPRESSION: Multiple acute to subacute infarcts within the posterior circulation, as detailed above. No hemorrhag e. No significant mass effect. The findings suggest an embolic event. ACT 112: Negative or not required by law. Electronically signed by: Barrett Avalos M.D. 10/05/2019 6:15 PM
[2019-10-05] MEDS: PIPERACILLIN/TAZOBACTAM 4.5 GM in DEXTROSE 5% 100 ML IV SCH (18:24)
[2019-10-05] MEDS: ATORVASTATIN 40 MG TAB PO SCH (19:56)
[2019-10-05] MEDS ORDERED: ENOXAPARIN 100 MG/1ML SYR SQ SCH (21:00)
[2019-10-05] MEDS: HEPARIN SODIUM/DEXTROSE 25,000 UNITS/500 ML BAG IV SCH (21:33)
[2019-10-05] MEDS ORDERED: Heparin IV Standard *NO* Bolus IV SCH (22:00)
--- NOTE | 2019-10-05 22:48 | Electrocardiogram Report ---
Test Reason : Blood Pressure : / mmHG Vent. Rate : 059 BPM Atrial Rate : 059 BPM P-R Int : 170 ms QRS Dur : 092 ms QT Int : 426 ms P-R-T Axes : 023 004 035 degrees QTc Int : 421 ms Sinus bradycardia Minimal voltage criteria for LVH, may be normal variant Borderline ECG When compared with ECG of 31-OCT-2006 12:37, No significant change was found Confirmed by Robbie Walsh ([id number]) on 10/05/2019 10:48:40 PM Referred By: REFERRED SELF Confirmed By:Robbie Walsh
[2019-10-06] MEDS: PIPERACILLIN/TAZOBACTAM 4.5 GM in DEXTROSE 5% 100 ML IV SCH ×3 (01:18→18:26)
[2019-10-06 04:07] LABS: Basophils # (auto) 0.02 K/uL (0-0.2); Basophils % (auto) 0.2 %; Eosinophils # (auto) 0.01 K/uL (0-0.5); Eosinophils % (auto) 0.1 %; Hematocrit (blood only) 35.6 % (37-47); Hemoglobin 12.1 g/dL (12.0-16.0); Immature Granulocytes # (auto) 0.03 K/uL (0.00-0.02); Immature Granulocytes % (auto) 0.2 %; Lymphocytes # (auto) 2.03 K/uL (1.2-3.4); Lymphocytes % (auto) 16.1 %; Mean Corpuscular Hemoglobin 29.4 pg (25-34); Mean Corpuscular Volume 86.6 fL (80-100); Mean Platelet Volume 9.9 fL (7.4-10.4); Monocytes # (auto) 1.32 K/uL (0.11-0.59); Monocytes % (auto) 10.5 %; Neutrophils # (auto) 9.21 K/uL (1.4-6.5); Neutrophils % (auto) 72.9 %; Platelet Count 250 K/uL (130-400); RDW Standard Deviation 43.9 fL (36.4-46.3); Red Blood Count 4.11 M/uL (4.2-5.4); White Blood Count 12.62 K/uL (4.8-10.8)
[2019-10-06 04:19] LABS: Partial Thromboplastin Ratio 1.6; Partial Thromboplastin Time 43.8 Seconds (21.0-31.0)
[2019-10-06 04:28] LABS: BUN Creatinine Ratio 17.1 (10-20); Creatinine Clr Calc Pharmacy 65.2 ml/min; Est GFR (African American) 70.3; Est GFR (Non-African American) 60.6; Potassium 3.6 mmol/L (3.5-5.1)
[2019-10-06] MEDS ORDERED: HEPARIN IV BOLUS 3,000 UNITS in SYRINGE 0 ML IV ONE (04:30)
[2019-10-06 05:56] LABS: Estimated Average Glucose 111 mg/dl; Hemoglobin A1C 5.5 % (4.5-5.6)
[2019-10-06] MEDS: METOPROLOL SUCC 50MG EXT REL TAB PO SCH (07:52)
[2019-10-06] MEDS: LEVOTHYROXINE SODIUM 75 MCG TABLET PO SCH (07:52)
[2019-10-06] MEDS: PANTOprazole 40 MG TAB PO SCH (07:53)
[2019-10-06] MEDS: DOCUSATE SODIUM 100 MG CAP PO SCH (07:56)
[2019-10-06] MEDS ORDERED: ASPIRIN 81 MG ECTAB PO SCH (08:00)
[2019-10-06] MEDS: ATORVASTATIN 40 MG TAB PO SCH (09:23)
[2019-10-06 11:04] LABS: Partial Thromboplastin Ratio 2.3
[2019-10-06 11:06] LABS: Partial Thromboplastin Time 63.7 Seconds (21.0-31.0)
--- NOTE | 2019-10-06 15:23 | Hospitalist Progress Note ---
Date of Service October 06, 2019 Assessment & Plan (1) Acute CVA (cerebrovascular accident): Cause of AMS however suprisingly little residual deficit current especially in light of hypotension Discussed with neurology as initially WBC increased therefore concern for infective endocarditis with full blood cultures still pending - intially discontinued antibiotics once she was in a. fib however will continue until blood cultures 48 hours negative after discussion with Dr Lynn. -ECHO without abnormality, no thrombus seen -continue heparin IV drip as below, switch to PO apixaban tomorrow if no hemorrhagic conversion HbA1C 5.5 Appreciate neurology consult (2) Paroxysmal atrial fibrillation: Anticoagulation with IV heparin drip. Discussed with Dr Lynn. Will get CT head in AM given size of strokes. If negative for hemorrhagic conversion she can be switched to oral anticogulation at that time. Discussed over the phone conversion with Dr Walsh - agrees with rate controlling strategy currently, will follow up in office. Switch metoprolol tartrate for succinate with hold parameters due to hypotension. HR currently around 100 in a. fib. TTE already performed - normal ventricular size and function, moderate left atrial dilatation likely predisposed to a. fib TSH WNL (3) Hypotension: Likely initial blood pressure raised in light of acute CVA. Hold parameters placed on metoprolol tartrate for a. fib rate control. (4) Splenic infarct: Embolic from atrial fibrillation suspected given now in this rhythm. ECHO with no thrombus and no valvular abnormalities Anticoagulation with IV heparin drip as above (5) Encephalopathy acute: Secondary to CVA as above, now resolved. Blood cultures negative after 24 hours but given concern for infective endocarditis will continue Zosyn until negative at 48 hours. COVID-19 negative (6) Leukocytosis: 12k on admission and up to 14k yesterday, with low grade temps UA without infection CXR negative but bottoms of lungs on CT abd/pel with appearance of viral bronchiolitis--> but no SOB, no cough, not likely PNA Could be from splenic infarcts Was having a mild runny nose prior to admission thought to be from allergies COVID 19 negative, Biofire negative -check BCxs -empiric abx with Zosyn, can discontinue at 48 hours if negative -follow CBC (7) Hypokalemia: Resolved following IV replacement yesterday follow BMP (8) Nausea & vomiting: -resolved -continue antiemetics prn (9) Hyponatremia: Suspected due to poor PO intake IV fluids discontinued initially (10) Sleep apnea: not on CPAP (11) GERD (gastroesophageal reflux disease): Patient with history of GERD, Barretts esophagus with esophageal dilatation in the past. EGD 11/2018 with hiatal hernia, Schatzki ring which was dilated -Omeprazole switched for pantoprazole as per hospital formulary (12) Hypothyroidism: Chronic -TSH WNL -Continue Synthroid 75mcg po daily (13) DVT prophylaxis: Heparin gtt Disposition - possible tomorrow discharge if no planned LONA and blood cultures negative after 48 hours Updated daughter Monica over the phone Admission and Anticipated Discharge Date Admission Date: October 04, 2019 Anticipated date of discharge: 10/07/19 Subjective Patient seems to be much improved from prior providers notes and hand over. She is unaware of coming to hospital and the events surrounding this and therefore history is unobtainable. Appears mildly confused but no subjective or objective weakness or change in sensation. Possible word finding difficulty noted by nursing staff but not noticed on neurological exam today. Responds with short sentences and does not have a lot of questions other than when is she going home. Abdominal pain appears resolved. No nausea, vomiting, diarrhea or constipation. Alert and orientated x3. Patient seen again in afternoon after going into atrial fibrillation. She denied any chest pain, shortness of breath, dizziness or palpitations. She was unaware anything had changed. Updated her daughter by patient request over the phone. Review of Systems Review of Systems: All systems reviewed & are unremarkable except as noted in HPI & below Physical Exam Constitutional: WD/WN, vitals as above Eyes: PERRL, conjunctivae normal, anicteric sclerae ENMT: external ear and nose normal, oropharynx normal Neck: trachea midline, no thyromegaly Respiratory: normal respiratory effort, lungs clear to auscultation Cardiovascular: RRR, no murmur, no edema (irregularly irregular in afternoon exam) Gastrointestinal (Abdomen): Inspection/Auscultation: normal bowel sounds; + abdomen abnormal to inspection (well healed incisional scars) and abdomen not distended Percussion/Palpation: abdomen soft; abdomen nontender, no guarding and abdomen not rigid Musculoskeletal: no cyanosis or clubbing, extremities motor strength 5/5 Extremities: extremities normal to inspection; no cyanosis and no clubbing Skin: no rashes, warm and dry Neurologic: CN's II-XI intact bilaterally, plantar reflexes intact bilaterally, moves all extremities and awake; no focal motor deficits and not confused Motor/Sensory: no tremor, no pronator drift and no sensory deficit Psychiatric: Orientation: alert and oriented x 3 Results & Data Results & Data ([facility]) Vital Signs (Past 12 Hours) Vital Signs Temp Pulse Pulse Resp BP Pulse Ox 10/06/19 15:04 36.4 C L 97 H 20 100/61 94 10/06/19 10:59 36.4 C L 58 L 19 106/64 97 10/06/19 10:33 103/63 10/06/19 08:00 72 10/06/19 07:06 36.9 C 68 19 89/45 L 94 PG Care Time/CCT Total # of Minutes Spent Total Time Spent with Patient: Total time spent is greater than 50% in coordination of care (as documented) at patient's floor/unit and/or counseling patient: Coding Level of Care Code 20896 Subseq Hosp Care Lvl 3 Diagnoses Acute CVA (cerebrovascular accident) I63.9 Paroxysmal atrial fibrillation I48.0 Hypotension I95.9 Hypotension type: unspecified hypotension type Splenic infarct D73.5 Encephalopathy acute G93.40 Leukocytosis D72.829 Hypokalemia E87.6 Nausea & vomiting R11.2 Hyponatremia E87.1 Sleep apnea G47.30 GERD (gastroesophageal reflux disease) K21.0 Esophagitis presence: with esophagitis Hypothyroidism E03.9 Hypothyroidism type: unspecified DVT prophylaxis Z29.9 (1) Hypothyroidism Hypothyroidism type: unspecified Qualified Code(s): E03.9 - Hypothyroidism, unspecified (2) GERD (gastroesophageal reflux disease) Esophagitis presence: with esophagitis Qualified Code(s): K21.0 - Gastro- esophageal reflux disease with esophagitis (3) Hypotension Hypotension type: unspecified hypotension type Qualified Code(s): I95.9 - Hypotension, unspecified
[2019-10-06] MEDS: HEPARIN SODIUM/DEXTROSE 25,000 UNITS/500 ML BAG IV SCH (15:57)
[2019-10-06] MEDS: METOPROLOL TARTRATE 25 MG TAB PO SCH ×2 (17:20→21:57)
--- NOTE | 2019-10-06 17:57 | Neurology Consultation ---
Date of Consultation October 06, 2019 Assessment & Plan (1) Stroke: Kathy Ford is a 63 yo woman w/ PMH of migraine, hypothyroidism, OA, BULMARO not on CPAP, HARRIS, Saleem's esophagus/GERD and history of gastric bypass who presented to [facility] on October 03 with severe abdominal pain and associated nausea/vomiting, found to have multiple strokes on CTH/MRI brain. Symptom localization: temporal lobe (confusion/short term memory difficulties) Stroke mechanism: cardioembolic, less likely hypercoagulable or cryptogenic Stroke WorkUp: - CT head: Subacute strokes in the left medial temporal lobe and right cerebellum - CTA head/neck: No LVO, high-grade stenosis or aneurysm - MRI brain: Acute to subacute strokes in the left thalamus, left medial temporal lobe, left MCP, left occipital lobe and right cerebellum - TTE: EF 55 to 60%, moderately dilated LA, mild MR, recommend LONA - Telemetry: Went into atrial flutter evening of 10/05 - A1c: 5.5 - FLP: 80 - Troponin, TSH: Negative, within normal Stroke Management: - Continuous cardiac monitoring - Vitals, Neurochecks, NIHSS per unit routine - BP parameters: SBP CAP 180, IV Labetalol/Hydralazine PRN - Consult speech, PT, OT for supportive management - Will addiction counselor concerning stroke education, smoking cessation, healthy diet, physical activity, weight loss - Follow up with PCP for assistance with outpatient goals (BP <135/85, LDL <70, A1c <7) - Follow up in neurology clinic in 6-8 weeks (can be via telehealth visit) - would also see if she could be seen by sleep medicine inpt vs outpt to fit CPAP appropriately as untreated BULMARO increases risk of stroke Secondary Stroke Prevention: - Antiplatelet: n/a - Anticoagulation: continue heparin high risk gtt. Repeat CTH on 10/06, and if stable (no hemorrhagic conversion), ok to start apixaban - Statin: Atorvastatin 40mg daily HTN: - BP parameters, as above FEN/GI: - Diet: Cardiac HH diet and PO meds given absence of bulbar signs or symptoms - Monitor lytes and replete PRN Glucose Control: - Sliding scale insulin and accuchecks per primary team to avoid hyperglycemia Thank you for this interesting consult. Plan of care was discussed with primary team. Please call with any questions. (2) Splenic infarct: (3) Hypothyroidism: (4) Sleep apnea: History of Present Illness Attending Physician: Ender Suarez MD History of Present Illness Kathy Ford is a 63 yo woman w/ PMH of migraine, hypothyroidism, OA, BULMARO not on CPAP, HARRIS, Saleem's esophagus/GERD and history of gastric bypass who presented to [facility] on October 03 with severe abdominal pain and associated nausea/vomiting, found to have multiple strokes on CTH/MRI brain. In the ED, she was afebrile with BP 187/94, heart rate 72 satting 96% on room air. Initial labs are notable for mild leukocytosis 12.71, hemoglobin 12.9, platelets 323, creatinine 0.8, glucose 135, INR 1.1, negative respiratory panel, negative COVID x2, UA negative for infection, TSH within normal, calcium/m agnesium/phosphorus within normal, mildly elevated alkaline phosphatase 130, troponin negative. CT of head was independently reviewed and notable for subacute infarcts in the left medial temporal lobe and the right cerebellum. CT of the abdomen and pelvis was notable for mild bronchial wall thickening, normal liver morphology, mild biliary duct prominence, moderate pancreatic atrophy, focal hypoenhancement in the spleen concerning for splenic infarct, atherosclerosis normal caliber abdominal aorta with degenerative changes of the spine noted. EKG showed sinus bradycardia. She was given Dilaudid, Phenergan and IV Tylenol for pain management and admitted for further work-up. She has been started on empiric Zosyn given leukocytosis which has been stopped at this point. Pain control was achieved with as needed Tylenol. Given acute stroke, CTA head and neck was obtained that showed no LVO, high-grade stenosis or aneurysm. MRI of the brain was notable for acute to subacute strokes in the left thalamus, left medial temporal lobe, left MCP, left occipital lobe and right right superior cerebellar lobe. She was transitioned from Lovenox to heparin high risk drip. Further testing was notable for A1c of 5.5, LDL 80. On examination today, NIH stroke scale of 0. She was noted to be mildly confused when asking more detailed questions but otherwise had an unremarkable neurological exam. She denied any current abdominal pain or nausea/vomiting. She was inquiring about when she would be able to go home. This afternoon, she had new onset Aflutter. Stroke Workflow: Where patient arrived from: home CT ASPECT: 9 Time IV tpa is given: NA If tpa not given, why not: outside of time window/unknown BUILDING CODE ADMINISTRATOR If delay >60min after hospital arrival, why: n/a If no IA therapy, why not: No LVO on CTA Patient Features: Admission NIHSS: 0 Admission Modified Closplint Scale: 0 Time patient last seen well: unknown BUILDING CODE ADMINISTRATOR Wake up stroke: unknown Intubation status: Not intubated Stroke Risk Factors: Hypertension: N Hyperlipidemia: N Atrial Fib: N Tobacco: Y, prior, quit years ago Diabetes: N Taking NOAC or warfarin: N Allergies Allergy/AdvReac Type Severity Reaction Status Date / Time No Known Allergies Allergy Verified 10/04/19 19:07 Home Medications Home Medications Medication Instructions Recorded Confirmed Type Women's Multivitamin 1 tab PO QAM 04/01/18 10/04/19 History calcium citrate-vitamin D3 2 tab PO QAM 04/01/18 10/04/19 History [Citracal + D Maximum] docusate sodium 200 mg PO QAM 04/01/18 10/04/19 History levothyroxine 75 mcg PO QAM 04/01/18 10/04/19 History omeprazole 20 mg PO QAM 04/01/18 10/04/19 History meloxicam 15 mg PO DAILY 10/04/19 10/04/19 History metoprolol succinate 50 mg PO DAILY 10/04/19 10/04/19 History Patient History Medical History Barretts esophagus Colon polyps Fatty liver disease, nonalcoholic GERD (gastroesophageal reflux disease) History of esophageal dilatation Hypothyroidism Migraine Nausea and vomiting after administration of anesthetic agent Osteoarthritis Sleep apnea doesn't use CPAP as ordered Surgical History History of bilateral cataract extraction History of carpal tunnel release bilt History of cholecystectomy History of colonoscopy History of dilatation and curettage History of esophagogastroduodenoscopy (EGD) History of gastric bypass History of repair of hiatal hernia History of tooth extraction wisdom teeth Social History Preferred Language: [place] Citizen Communication Ability: Effective Human Service Coordinator Required: No Beliefs That Will Affect Care: None Current Living Situation: Family Current Living Situation Comment: lives with fiance, daughter and grandson Feels Safe at Home: Yes Smoking Status: Former smoker Tobacco Type: cigarettes ; Second Hand Exposure: Yes ; Hx Alcohol Use: Yes Alcohol type: beer Hx Substance Use: No Review of Systems Review of Systems: 14 point review of systems completed and negative except as in HPI. Exam (Neuro) Physical Exam: General Exam: GEN: NAD, sitting down in examination bed. HEENT: No conjunctival injection, no rhinorrhea. CV: RRR on monitor, no significant edema. PULM: Nonlabored respirations on room air. INTEG: No rashes. Neuro Exam: MS: Awake and Alert. Oriented to person, place, and date. Speech fluent and appropriate without dysarthria or paraphasic errors. Language intact including naming, comprehension, repetition. Cognition and memory grossly intact (mild difficulties with short term memory noted). Attention intact. No neglect. CN: Visual carrasquillo full, + blink to threat bilaterally. No extinction to double simultaneous stimuli. Unable to visualize fundi on fundoscopic exam. PERRLA OU. EOMI without nystagmus. Facial sensation intact to LT. Facial muscles full and symmetric. Hearing intact to finger rub bilaterally. Uvula midline with symmetric palatal elevation. Shoulder shrug normal. Tongue midline. MOTOR: Normal bulk and tone. No pronator drift. BUE strength 5/5 at deltoids, biceps, triceps, wrist flexors and extensors, and hand grasp bilaterally. BLE strength 5/5 at iliopsoas, hamstrings, quadriceps, tibialis anterior, and gastrocnemius bilaterally. REFLEXES: 1+ at biceps, triceps, brachioradialis, 1+ patella, and trace Achilles bilaterally. Flexor plantar responses bilaterally. SENSORY: Intact to LT throughout, no extinction to double simultaneous stimuli. COORDINATION: No dysmetria or ataxia on [id number] bilaterally. Normal Barrie bilaterally. GAIT: Deferred due to physical status. NIH STROKE SCALE 1A. Level of Consciousness (0-3) = 0 1B. LOC Questions (0-2) = 0 1C. LOC Commands (0-2) = 0 2. Best Horizontal Gaze (0-2) = 0 3. Visual Carrasquillo (0-3) = 0 4. Facial Palsy (0-3) = 0 5. Motor Arm Right (0-4) = 0 Left (0-4) = 0 6. Motor Leg Right (0-4) = 0 Left (0-4) = 0 7. Limb Ataxia (0-2) = 0 8. Sensory (0-2) = 0 9. Best Language (0-3) = 0 10. Dysarthria (0-2) = 0 11. Extinction and Inattention (0-2) = 0 NIHSS TOTAL = 0 Results & Data ([facility]) Vital Signs (Past 12 Hours) Vital Signs Temp Pulse Pulse Resp BP Pulse Ox 10/06/19 15:04 36.4 C L 97 H 20 100/61 94 10/06/19 10:59 36.4 C L 58 L 19 106/64 97 10/06/19 10:33 103/63 10/06/19 08:00 72 10/06/19 07:06 36.9 C 68 19 89/45 L 94 PG Care Time/CCT Total # of Minutes Spent Total Time Spent with Patient: Total time spent is greater than 50% in coordination of care (as documented) at patient's floor/unit and/or counseling patient: Coding Level of Care Code 81472 Office/OBS Consult Lvl 5 Diagnoses Stroke I63.9 Splenic infarct D73.5 Hypothyroidism E03.9 Hypothyroidism type: unspecified Sleep apnea G47.30 (1) Hypothyroidism Hypothyroidism type: unspecified Qualified Code(s): E03.9 - Hypothyroidism, unspecified
[2019-10-06] MEDS ORDERED: LACTATED RINGER'S 500 ML IV ONE (21:34)
[2019-10-06] MEDS ORDERED: LACTATED RINGER'S 1,000 ML IV SCH (21:45)
[2019-10-06 22:29] LABS: Hematocrit (blood only) 36.7 % (37-47); Hemoglobin 12.4 g/dL (12.0-16.0)
--- NOTE | 2019-10-06 23:44 | Electrocardiogram Report ---
Test Reason : Blood Pressure : / mmHG Vent. Rate : 089 BPM Atrial Rate : 131 BPM P-R Int : 000 ms QRS Dur : 088 ms QT Int : 382 ms P-R-T Axes : 000 001 020 degrees QTc Int : 464 ms Atrial fibrillation Minimal voltage criteria for LVH, may be normal variant Abnormal ECG When compared with ECG of 04-OCT-2019 15:42, Atrial fibrillation has replaced Sinus rhythm Vent. rate has increased BY 30 BPM QT has lengthened Confirmed by Robbie Walsh ([id number]) on 10/06/2019 11:44:04 PM Referred By: REFERRED SELF Confirmed By:Robbie Walsh
[2019-10-07] MEDS: PIPERACILLIN/TAZOBACTAM 4.5 GM in DEXTROSE 5% 100 ML IV SCH ×2 (01:41→10:06)
[2019-10-07 05:41] LABS: Basophils # (auto) 0.05 K/uL (0-0.2); Basophils % (auto) 0.6 %; Eosinophils # (auto) 0.06 K/uL (0-0.5); Eosinophils % (auto) 0.7 %; Hematocrit (blood only) 35.4 % (37-47); Immature Granulocytes # (auto) 0.02 K/uL (0.00-0.02); Immature Granulocytes % (auto) 0.2 %; Lymphocytes # (auto) 2.42 K/uL (1.2-3.4); Lymphocytes % (auto) 29.8 %; Mean Corpuscular Hemoglobin 29.6 pg (25-34); Mean Corpuscular Hgb Conc 33.9 g/dL (32-36); Mean Corpuscular Volume 87.2 fL (80-100); Mean Platelet Volume 10.1 fL (7.4-10.4); Monocytes # (auto) 0.96 K/uL (0.11-0.59); Monocytes % (auto) 11.8 %; Neutrophils % (auto) 56.9 %; Platelet Count 223 K/uL (130-400); RDW Coefficient of Variation 14.2 % (11.5-14.5); RDW Standard Deviation 44.6 fL (36.4-46.3); Red Blood Count 4.06 M/uL (4.2-5.4); White Blood Count 8.11 K/uL (4.8-10.8)
[2019-10-07 06:16] LABS: Partial Thromboplastin Ratio 1.9
[2019-10-07 06:24] LABS: BUN Creatinine Ratio 15.9 (10-20); Calcium 8.1 mg/dl (8.5-10.1); Est GFR (African American) 74.8; Est GFR (Non-African American) 64.6; Partial Thromboplastin Time 52.3 Seconds (21.0-31.0)
--- NOTE | 2019-10-07 07:21 | CT Scan Report ---
CT head/brain wo con CLINICAL HISTORY: 63 years-old Female with r/o hemorrhagic conversion of stroke. Follow-up study in a patient with acute stroke TECHNIQUE: Multiple axial CT images of the head were obtained without contrast. A dose lowering tech nique was utilized adhering to the principles of ALARA. CT DOSE: 614.27 mGy.cm COMPARISON: Brain MRI 10/05/2019, CT head 10/05/2019 FINDINGS: Multiple acute to subacute appearing infarcts of the right and left posterior circulation distributio ns are redemonstrated measuring up to 2.7 cm within the superior aspect of the right cerebellum. Mild ly increased surrounding cytotoxic edema. No acute intracranial hemorrhage, midline shift, intracranial mass, hydrocephalus, or abnormal extra- axial collection. The calvarium is intact. Prior bilateral lens replacement. The paranasal sinuses, mastoid air cells, and middle ear cavities are clear. IMPRESSION: Multiple acute to subacute appearing infarcts of the posterior circulation are redemonst rated with mildly increased amount of evolving cytotoxic edema. No associated intracranial hemorrhage , midline shift or herniation. Again, these findings are suggestive of embolic disease. ACT 112: Negative or not required by law. The above report was generated using voice recognition software. It may contain grammatical, syntax o r spelling errors. Electronically signed by: Ulices Braga M.D. 10/07/2019 7:20 AM
[2019-10-07] MEDS: METOPROLOL TARTRATE 25 MG TAB PO SCH (07:49)
[2019-10-07] MEDS: PANTOprazole 40 MG TAB PO SCH (07:56)
[2019-10-07] MEDS: ATORVASTATIN 40 MG TAB PO SCH (07:57)
[2019-10-07] MEDS: LEVOTHYROXINE SODIUM 75 MCG TABLET PO SCH (07:57)
[2019-10-07] MEDS: DOCUSATE SODIUM 100 MG CAP PO SCH (07:58)
[2019-10-07] MEDS ORDERED: METOPROLOL TARTRATE 25 MG TAB PO SCH (09:00)
[2019-10-07] MEDS ORDERED: POTASSIUM CHLORIDE 20 MEQ TABCR PO SCH (09:00)
[2019-10-07] MEDS: APIXABAN 2.5 MG TAB PO SCH ×2 (10:05→17:19)
--- NOTE | 2019-10-07 15:35 | Neurology Progress Note ---
Date of Service October 07, 2019 Assessment & Plan (1) Stroke: Kathy Ford is a 63 yo woman w/ PMH of migraine, hypothyroidism, OA, BULMARO not on CPAP, HARRIS, Saleem's esophagus/GERD and history of gastric bypass who presented to [facility] on October 03 with severe abdominal pain and associated nausea/vomiting, found to have multiple strokes on CTH/MRI brain. Symptom localization: temporal lobe (confusion/short term memory difficulties) Stroke mechanism: cardioembolic, less likely hypercoagulable or cryptogenic Stroke WorkUp: - CT head: Subacute strokes in the left medial temporal lobe and right cerebellum - CTA head/neck: No LVO, high-grade stenosis or aneurysm - MRI brain: Acute to subacute strokes in the left thalamus, left medial temporal lobe, left MCP, left occipital lobe and right cerebellum - TTE: EF 55 to 60%, moderately dilated LA, mild MR - Telemetry: Went into atrial flutter evening of 10/05 - A1c: 5.5 - FLP: 80 - Troponin, TSH: Negative, within normal - will plan on obtaining outpatient hypercoagulable panel at her follow up neuro visit. Will ensure that she is up to date on all age appropriate cancer screening at f/u visit. Stroke Management: - Continuous cardiac monitoring - Vitals, Neurochecks, NIHSS per unit routine - BP parameters: SBP CAP 180, IV Labetalol/Hydralazine PRN - Consult speech, PT, OT for supportive management - Will drug and alcohol counsellor concerning stroke education, smoking cessation, healthy diet, physical activity, weight loss - Follow up with PCP for assistance with outpatient goals (BP <135/85, LDL <70, A1c <7) - Follow up in neurology clinic in 6-8 weeks (can be via telehealth visit) - would also see if she could be seen by sleep medicine inpt vs outpt to fit CPAP appropriately as untreated BULMARO increases risk of stroke Secondary Stroke Prevention: - Antiplatelet: n/a - Anticoagulation: ok to transition to apixaban - Statin: Atorvastatin 40mg daily HTN: - BP parameters, as above FEN/GI: - Diet: Cardiac HH diet and PO meds given absence of bulbar signs or symptoms - Monitor lytes and replete PRN (calcium low at 8.1) Glucose Control: - Sliding scale insulin and accuchecks per primary team to avoid hyperglycemia Thank you for this interesting consult. Plan of care was discussed with primary team. Please call with any questions. (2) Splenic infarct: (3) Hypothyroidism: (4) Sleep apnea: Admission and Anticipated Discharge Date Admission Date: October 04, 2019 Anticipated date of discharge: 10/07/19 Subjective Went into Afib yesterday afternoon. No further change in neurological exam noted. Had repeat CTH this morning that is stable with no new infarcts noted, evolving known infarcts from prior MRI brain and no hemorrhagic conversion noted. Reports that she is doing well today and asking when she will go home. Review of Systems Review of Systems: 14 point review of systems completed and negative except as in HPI. Results & Data ([facility]) Vital Signs (Past 12 Hours) Vital Signs Temp Pulse Resp BP Pulse Ox 10/07/19 11:05 36.4 C L 73 19 84/54 L 94 10/07/19 10:28 90/56 L 10/07/19 10:14 89/54 L 10/07/19 07:19 36.4 C L 85 19 92/61 L 93 10/07/19 05:21 36.7 C 85 16 97/61 L 94 Exam (Neuro) Physical Exam: General Exam: GEN: NAD, sitting down in examination bed. HEENT: No conjunctival injection, no rhinorrhea. CV: RRR on monitor, no significant edema. PULM: Nonlabored respirations on room air. INTEG: No rashes. Neuro Exam: MS: Awake and Alert. Oriented to person, place, and date. Speech fluent and appropriate without dysarthria or paraphasic errors. Language intact including naming, comprehension, repetition. Cognition and memory grossly intact (mild difficulties with short term memory noted). Attention intact. No neglect. CN: Visual carrasquillo full, + blink to threat bilaterally. No extinction to double simultaneous stimuli. Unable to visualize fundi on fundoscopic exam. PERRLA OU. EOMI without nystagmus. Facial sensation intact to LT. Facial muscles full and symmetric. Hearing intact to finger rub bilaterally. Uvula midline with symmetric palatal elevation. Shoulder shrug normal. Tongue midline. MOTOR: Normal bulk and tone. No pronator drift. BUE strength 5/5 at deltoids, biceps, triceps, wrist flexors and extensors, and hand grasp bilaterally. BLE strength 5/5 at iliopsoas, hamstrings, quadriceps, tibialis anterior, and gastrocnemius bilaterally. REFLEXES: 1+ at biceps, triceps, brachioradialis, 1+ patella, and trace Achilles bilaterally. Flexor plantar responses bilaterally. SENSORY: Intact to LT throughout, no extinction to double simultaneous stimuli. COORDINATION: No dysmetria or ataxia on [id number] bilaterally. Normal Barrie bilaterally. GAIT: Deferred due to physical status. NIH STROKE SCALE 1A. Level of Consciousness (0-3) = 0 1B. LOC Questions (0-2) = 0 1C. LOC Commands (0-2) = 0 2. Best Horizontal Gaze (0-2) = 0 3. Visual Carrasquillo (0-3) = 0 4. Facial Palsy (0-3) = 0 5. Motor Arm Right (0-4) = 0 Left (0-4) = 0 6. Motor Leg Right (0-4) = 0 Left (0-4) = 0 7. Limb Ataxia (0-2) = 0 8. Sensory (0-2) = 0 9. Best Language (0-3) = 0 10. Dysarthria (0-2) = 0 11. Extinction and Inattention (0-2) = 0 NIHSS TOTAL = 0 PG Care Time/CCT Total # of Minutes Spent Total Time Spent with Patient: Total time spent is greater than 50% in coordination of care (as documented) at patient's floor/unit and/or counseling patient: Coding Level of Care Code 59869 Subseq Hosp Care Lvl 3 Diagnoses Stroke I63.9 Splenic infarct D73.5 Hypothyroidism E03.9 Hypothyroidism type: unspecified Sleep apnea G47.30 (1) Hypothyroidism Hypothyroidism type: unspecified Qualified Code(s): E03.9 - Hypothyroidism, unspecified
--- NOTE | 2019-10-07 16:28 | Cardiology Progress Note ---
Date of Service October 07, 2019 Assessment & Plan (1) Stroke: (2) Splenic infarct: ASSESSMENT/PLAN: 1. Paroxysmal atrial fibrillation: Asymptomatic while in AFib. Heart rate seemed to be reasonably controlled. Would continue low-dose beta-mamie if blood pressure tolerates. Agree with anticoagulation for stroke risk reduction. Diagnosis discussed with her in detail. 2. Stroke: Likely embolic related to atrial fibrillation. No residual affects per patient. 3. Splenic infarct: Likely related to atrial fibrillation. Anticoagulation as above. 4. Disposition: Cardiology will sign off at this time. Recommend cardiology follow-up in 2-4 weeks. Admission and Anticipated Discharge Date Admission Date: October 04, 2019 Anticipated date of discharge: 10/07/19 Subjective She is feeling much better overall. Yesterday, she had paroxysmal atrial fibrillation and was completely asymptomatic. Her heart rate was reasonably controlled on beta-mamie however some of her beta-mamie doses have been held due to hypotension. She states that she has no residual affects from her stroke. She denies any abdominal pain. She denies chest pain, shortness of breath, syncope, near-syncope, palpitations, edema, or bleeding. Review of systems: As above. Physical Exam Physical Exam: Gen.: No acute distress. Alert and oriented. HEENT: Anicteric sclera. Neck: No JVD. No bruits. Normal carotid upstrokes bilaterally. Cardiac: PMI was nonpalpable. No ventricular heave. Regular rate and rhythm. Normal S1-S2. No murmurs, rubs, or gallops. Pulmonary: Clear to auscultation bilaterally without wheezes, rales, or rhonchi. Abdomen: Soft, nontender, nondistended, with normoactive bowel sounds. No bruits noted. Extremities: 2+ radial pulses bilaterally. 2+ posterior tibialis pulses bilaterally. No edema or cyanosis. Psychiatric: Affect appears appropriate. Results & Data ([facility]) Vital Signs (Past 12 Hours) Vital Signs Temp Pulse Pulse Resp BP Pulse Ox 10/07/19 15:49 70 10/07/19 15:32 36.7 C 71 18 87/57 L 94 10/07/19 11:05 36.4 C L 73 19 84/54 L 94 10/07/19 10:28 90/56 L 10/07/19 10:14 89/54 L 10/07/19 07:19 36.4 C L 85 19 92/61 L 93 10/07/19 05:21 36.7 C 85 16 97/61 L 94 Laboratory Results Laboratory Results - last 24 hr 10/06/19 10/07/19 10/07/19 22:18 05:17 05:17 WBC 8.11 RBC 4.06 L Hgb 12.4 12.0 Hct 36.7 L 35.4 L MCV 87.2 MCH 29.6 MCHC 33.9 RDW Std Deviation 44.6 RDW Coeff of Iqra 14.2 Plt Count 223 MPV 10.1 Immature Gran % (Auto) 0.2 Neut % (Auto) 56.9 Lymph % (Auto) 29.8 [place] % (Auto) 11.8 Eos % (Auto) 0.7 Baso % (Auto) 0.6 Immature Gran # (Auto) 0.02 Neut # (Auto) 4.60 Lymph # (Auto) 2.42 [place] # (Auto) 0.96 H Eos # (Auto) 0.06 Baso # (Auto) 0.05 APTT 52.3 H* PTT Ratio 1.9 Sodium Potassium Chloride Carbon Dioxide Anion Gap BUN Creatinine Est Cr Clr Drug Dosing Est GFR ( Amer) Est GFR (Non-Af Amer) BUN/Creatinine Ratio Glucose Calcium 10/07/19 05:17 WBC RBC Hgb Hct MCV MCH MCHC RDW Std Deviation RDW Coeff of Iqra Plt Count MPV Immature Gran % (Auto) Neut % (Auto) Lymph % (Auto) [place] % (Auto) Eos % (Auto) Baso % (Auto) Immature Gran # (Auto) Neut # (Auto) Lymph # (Auto) [place] # (Auto) Eos # (Auto) Baso # (Auto) APTT PTT Ratio Sodium 141 D Potassium 3.0 L D Chloride 108 H Carbon Dioxide 26 Anion Gap 7.0 BUN 15 Creatinine 0.94 Est Cr Clr Drug Dosing 68.0 Est GFR ( Amer) 74.8 Est GFR (Non-Af Amer) 64.6 BUN/Creatinine Ratio 15.9 Glucose 115 H Calcium 8.1 L Diagnostic Findings Telemetry personally reviewed: Sinus rhythm currently. She was in atrial fibrillation and spontaneously converted at 7:35 a.m. today. ECGs personally reviewed: ECG 10/07/2019 at 8:53 a.m.: Sinus rhythm with PACs 80 bpm. ECG 10/06/2019 at 2:27 p.m.: AFib 89 bpm. Medications Administered Current Inpatient Medications Acetaminophen (Tylenol) 650 mg PO Q4H PRN PRN Reason: pain/fever Stop: 11/03/19 23:01 Apixaban (Eliquis) 5 mg PO BID [facility] Stop: 11/06/19 08:59 Last Admin: 10/07/19 10:05 Dose: 5 mg Documented by: Atorvastatin Calcium (Lipitor) 40 mg PO QAM@0800 [facility] Stop: 11/04/19 16:29 Last Admin: 10/07/19 07:57 Dose: 40 mg Documented by: Docusate Sodium (Colace) 200 mg PO DAILY@0800 [facility] Stop: 11/04/19 07:59 Last Admin: 10/07/19 07:58 Dose: 200 mg Documented by: Gadobutrol (Gadavist 65ml) 9.5 ml IV ONCE PRN PRN Reason: Interaction Checking Stop: 10/09/19 18:00 Last Admin: 10/05/19 18:02 Dose: 9.5 ml Documented by: Ioversol (Optiray 320 100ml) 92 ml IV ONCE PRN PRN Reason: Interaction Checking Stop: 10/08/19 16:56 Last Admin: 10/04/19 16:57 Dose: 92 ml Documented by: Ioversol (Optiray 320 125ml) 120 ml IV ONCE PRN PRN Reason: Interaction Checking Stop: 10/09/19 17:23 Last Admin: 10/05/19 17:24 Dose: 120 ml Documented by: Levothyroxine Sodium (Synthroid) 75 mcg PO DAILY@0800 [facility] Stop: 11/04/19 07:59 Last Admin: 10/07/19 07:57 Dose: 75 mcg Documented by: Metoprolol Tartrate (Lopressor) 25 mg PO BID [facility] Stop: 11/06/19 08:59 Last Admin: 10/07/19 10:04 Dose: Not Given Documented by: Miscellaneous Information (Pharmacist Discharge Med Rec Consult) 1 ea N/A UD PRN PRN Reason: Consult Stop: 11/04/19 16:11 Ondansetron HCl (Zofran) 4 mg IV Q6H PRN PRN Reason: Nausea Stop: 11/03/19 23:01 Last Admin: 10/05/19 06:25 Dose: 4 mg Documented by: Pantoprazole Sodium (Protonix) 40 mg PO DAILY@0800 [facility] Stop: 11/04/19 07:59 Last Admin: 10/07/19 07:56 Dose: 40 mg Documented by: Potassium Chloride (Klor-Con M20) 40 meq PO QAM [facility] Stop: 11/06/19 08:59 Last Admin: 10/07/19 10:04 Dose: 40 meq Documented by: PG Care Time/CCT Total # of Minutes Spent Total Time Spent with Patient: Total time spent is greater than 50% in coordination of care (as documented) at patient's floor/unit and/or counseling patient: Coding Level of Care Code 53697 Subseq Hosp Care Lvl 3 Diagnoses Stroke I63.9 Splenic infarct D73.5
[2019-10-07] MEDS ORDERED: STROKE PATIENT DISCHARGE STA (17:15)
[2019-10-07] MEDS ORDERED: Nursing to Pharmacy Communication ONE (17:20)
--- NOTE | 2019-10-07 17:21 | Discharge Summary ---
Date of Service October 07, 2019 Admission HPI Per Admitting Provider Kathy Ford is a 63yo C female presenting with acute onset abdominal pain, nausea and vomiting x 1 day. Found to have splenic infarct. History limited as patient in extreme discomfort during my encounter. She is able to answer questions appropriately and follow commands. ER Course: Tylenol, Dilaudid, Zofran, Phenergan, NSS Admission Exam Per Admitting Provider General: patient in moderate distress secondary to abdominal discomfort, answers questions appropriately and follows commands Skin: warm, dry, intact, no rashes or lesions HEENT: NC/AT, PERRL, EOMI, anicteric sclera, conjunctiva without injection, external ear normal to inspection and nontender, nares patent, moist mucus membranes, dentition intact, no oropharyngeal lesions, neck supple, trachea midline, no LAD, no thyromegaly, no JVD Heart: +S1/S2, regular, no m/r/g Lungs: equal air entry bilaterally, no rales/rhonchi/wheezes Abd: diminished bowel sounds, abdomen mildly distended, soft, tender to palpation with voluntary guarding Ext: warm, 2+ pulses in UE/LE bilaterally, no clubbing/cyanosis or edema Neuro: nonfocal, patient AA&O, speech intact, no facial droop, moving all extremities on command with equal strength 5/5 Principal Diagnosis Multiple acute embolic strokes Paroxysmal atrial fibrillation Acute splenic infarction Discharge Exam Constitutional WD/WN, vitals as above Eyes + anicteric sclerae; normal pupil size ENMT external ear and nose normal, oropharynx normal Respiratory normal respiratory effort Cardiovascular Rate/Rhythm: regular rate and regular rhythm Gastrointestinal (Abdomen) Percussion/Palpation: abdomen soft; abdomen nontender, no guarding and abdomen not rigid Musculoskeletal Extremities: extremities normal to inspection; no cyanosis and no clubbing Skin no rashes, warm and dry Neurologic CN's II-XI intact bilaterally, plantar reflexes intact bilaterally, moves all extremities and awake; no focal motor deficits and not confused Motor/Sensory: no tremor, no pronator drift and no sensory deficit Psychiatric Orientation: alert and oriented x 3 Discharge Data Allergies Allergy/AdvReac Type Severity Reaction Status Date / Time No Known Allergies Allergy Verified 10/04/19 19:07 Consultations 10/04/19 19:09 ED Decision to Admit Stat 10/05/19 09:06 Consult Cardiology Routine 10/05/19 11:04 Consult General Surgery Routine 10/05/19 16:12 Consult Case Management - Discharge Planning Routine Consult Neurology Routine Ordered Studies 10/04/19 15:33 CT abd pelvis IV con only Stat 10/05/19 14:55 CT head/brain wo con Stat 10/05/19 16:18 CT angio head w con Routine CT angio neck with con Routine 10/05/19 16:29 MRI Brain [MR brain wo/w con] Stat 10/07/19 07:00 CT head/brain wo con Routine Echo: LVEF 55-60%. No regional wall abnormalities. Moderate left atrial dilation Mild mitral regurgitation Hospital Course (1) Acute CVA (cerebrovascular accident): Kathy Ford is a 63 year old female admitted to [facility] from October 03 to 2019 due to acute onset abdominal pain. CT showed acute splenic infarction as a cause of her pain. During her second day of admission she became very lethargic and subsequent CT head showed multiple embolic infarcts. MRI brain confirmed multiple acute to subacute infarcts within the posterior circulation. She was already being treated with IV heparin for the splenic infarct therefore her treatment did not change. Subsequently she became less confused over the following days with no residual deficit other than slight confusion on discharge 90/56 she is asymptomatic with this and has no orthostatic hypotension. She notes a longstanding history of low blood pressure. She is also on a small dose of metoprolol which could be stopped if she becomes symptomatic with this. She flipped into atrial fibrillation on October 05 (back in sinus rhythm the following day) confirming the likely etiology of her strokes although slightly atypical in her posterior circulation therefore still some concern for a hyper coagulable state and she will follow up with neurology for possible assessment of this. Despite her low blood pressure on discharge . Of note there was some initial concern with the lethargy for infective endocarditis or abdominal infection however once blood cultures were negative after 48 hours and no source of infection found antibiotics were discontinued. Follow up with cardiology (for a. fib) and neurology as below. (2) Paroxysmal atrial fibrillation: (3) Hypotension: (4) Splenic infarct: (5) Encephalopathy acute: (6) Leukocytosis: (7) Hypokalemia: (8) Nausea & vomiting: (9) Hyponatremia: (10) Sleep apnea: (11) GERD (gastroesophageal reflux disease): (12) Hypothyroidism: Total Time Total Time Spent Total Time Spent (In Minutes): 50 Total Time Includes: Examination of the Patient, Discharge Planning, Medication Reconciliation and Communication With Other Providers (Neurology and Cardiology) Discharge Plan Discharge Items Patient Disposition: Home - Home Health Services Reason For Visit: Abdominal pain Discharge Diagnosis: Multiple acute embolic strokes Paroxysmal atrial fibrillation Acute splenic infarction Activity: Resume your previous activity Non-emergency contact: Primary Care Provider Call non-emergency contact if: you have any medication questions Follow-up/Referrals: Robbie Walsh MD [Physician] - (2-4 weeks) Michelle Lynn MD [Physician] - (4-6 weeks, suitable for tele visit) Louis Lopez MD [Primary Care Provider] - Diet: Regular Addtl Attending Provider Instructions: You were admitted to [facility] from October 03 to 2019 due to acute onset abdominal pain. You were diagnosed with acute splenic infarction. During your hospitalization you developed acute altered mental state and subsequent CT and MRI imaging confirmed multiple embolic strokes. During your hospitalization you developed atrial fibrillation which is the likely cause of your stroke and spleen infarction. For this you were treated with intravenous heparin and now converted to Eliquis for lifelong anticoagulation to reduce your ongoing stroke risk. Recommend continuing on metoprolol but at half your usual dose due to ongoing low blood pressures, this will also help your rate not go too fast while in atrial fibrillation. On your day of discharge you converted back to normal sinus rhythm but you are likely to convert back and forth to atrial fibrillation and not be aware of this. You recovered well from the stroke and are now medically stable for discharge. Please follow up with neurology and cardiology as above. Please follow up with your primary care provider in the next 1-2 weeks. Pending Studies at Discharge: No Stand-Alone Forms: Medications to Prevent Stroke, My [facility], Smoking Cessation Medications and DC Order Prescriptions: New Eliquis 5 mg tablet 5 mg PO BID Qty: 60 RF: 0 atorvastatin 40 mg Tablet 40 mg PO QAM@0800 Qty: 30 RF: 0 Continued levothyroxine 75 mcg Tablet 75 mcg PO QAM RF: 0 docusate sodium 100 mg Tablet 200 mg PO QAM RF: 0 omeprazole 20 mg Tablet,Delayed Release (Dr/Ec) 20 mg PO QAM RF: 0 calcium citrate-vitamin D3 [Citracal + D Maximum] 315-250 mg-unit Tablet 2 tab PO QAM RF: 0 Women's Multivitamin 18 mg iron-400 mcg-500 mg Tablet 1 tab PO QAM RF: 0 Changed metoprolol succinate 50 mg tablet extended release 24 hr 25 mg PO DAILY Qty: 0 RF: 0 Discontinued meloxicam 15 mg tablet 15 mg PO DAILY RF: 0 Discharge Orders: Discharge Order (Routine); Ordered 10/07/19 Ordered By: Ender Suarez Admission Data Admit Date/Time: 10/04/19 20:16 Attending Provider: Ender Suarez Admit Provider: Eileen Crum Primary Care Provider: Louis Lopez Other Providers: Susan Aldana ; Robbie Walsh ; Seamus German ; Filipe Lang ; [facility] Other Interventions: Discharge Summary Assessment (RN) Last Done: 10/07/19 16:56 DC Date/Time DO NOT enter until pt leaves facility: 10/07/19 17:36 Coding Level of Care Code D/C Day Management >30 mins Diagnoses Acute CVA (cerebrovascular accident) I63.9 Paroxysmal atrial fibrillation I48.0 Hypotension I95.9 Hypotension type: unspecified hypotension type Splenic infarct D73.5 Encephalopathy acute G93.40 Leukocytosis D72.829 Hypokalemia E87.6 Nausea & vomiting R11.2 Hyponatremia E87.1 Sleep apnea G47.30 GERD (gastroesophageal reflux disease) K21.0 Esophagitis presence: with esophagitis Hypothyroidism E03.9 Hypothyroidism type: unspecified
--- NOTE | 2019-10-07 17:36 | Pharmacy Report ---
Pharmacist Stroke Counseling - Date of Service October 07, 2019 - Scope: Pharmacy has been consulted to provide medication discharge counseling for this patient admitted with ischemic stroke as per the Pharmacist Discharge Counseling for Stroke Patients Protocol. - Medications on Discharge: Home Medications Medication Instructions Recorded Confirmed Women's Multivitamin 1 tab PO QAM 04/01/18 10/04/19 calcium citrate-vitamin D3 2 tab PO QAM 04/01/18 10/04/19 [Citracal + D Maximum] docusate sodium 200 mg PO QAM 04/01/18 10/04/19 levothyroxine 75 mcg PO QAM 04/01/18 10/04/19 omeprazole 20 mg PO QAM 04/01/18 10/04/19 New Rx's Medication Instructions Recorded apixaban [Eliquis] 5 mg PO BID #60 tab 10/07/19 atorvastatin 40 mg PO QAM@0800 #30 tab 10/07/19 metoprolol succinate 25 mg PO DAILY #0 tab 10/07/19 - Action: The above medications, specifically ones for stroke treatment/prophylaxis, have been reviewed in detail with the patient and/or patient merchandiser retail representative(s) prior to discharge. This includes indication, common adverse reactions, drug interactions, and medication administration. Medication counseling has been employed using the teach-back method to ensure understanding. - Outcome: The patient and/or patient merchandiser retail representative(s) have demonstrated understanding of the medications. Please note, they are aware that the pharmacist will call them within 72 hours post-discharge to confirm that the appropriate medications are being taken and answer any further medication related questions the patient might have at that time. Contact information Individual to be contacted: Kathy Relationship to patient (if applicable): Patient Phone number: [phone] Best time to call: Anytime Additional comments: - Discussed new medications in detail. Additionally, reviewed discontinuation of meloxicam (pain didn't seem to be a significant concern, as the patient didn't even remember taking this medication). Finally, reviewed dose reduction of metoprolol succinate from 50 mg to 25 mg daily. Thank you for allowing pharmacy to be involved in the care of this patient. Please call [phone] with any additional questions
--- NOTE | 2019-10-08 05:35 | Electrocardiogram Report ---
Test Reason : Blood Pressure : / mmHG Vent. Rate : 080 BPM Atrial Rate : 080 BPM P-R Int : 170 ms QRS Dur : 090 ms QT Int : 426 ms P-R-T Axes : 049 012 032 degrees QTc Int : 491 ms Normal sinus rhythm Prolonged QT Abnormal ECG When compared with ECG of 06-OCT-2019 14:27, Sinus rhythm has replaced Atrial fibrillation Confirmed by Robbie Walsh ([id number]) on 10/08/2019 5:34:50 AM Referred By: REFERRED SELF Confirmed By:Robbie Walsh
--- NOTE | 2019-10-10 15:28 | Pharmacy Report ---
Pharmacist Post D/C Phone Note - Phone Note: Date of phone call: October 10, 2019. Individual with whom pharmacist spoke to: TATI JADE The following questions were reviewed during the phone call with responses listed below each: Can you tell me the medications that you are currently taking as well as when and how you take each medication? -See Table Below When have you missed any doses of your medications? - no missed doses What side effects are you having from your medications, specifically, the new medications you were started on? - Only bruising at IV site. No bleeding, no muscle pain. What questions do you have about your medications? - Patient is taking APAP only now for pain/headache. I told her this is the safest with her Eliquis. What problems are you having obtaining your medications? - None When is your next appointment with your primary care doctor? - I confirmed her cardiology appt with her for 10/21. She will call PCP and neurology for f/u appts. Additional comments: - Discussed what to do if patient misses a dose of Eliquis - Confirmed patient stopped Mobic. She is cutting her Toprol XL 50 mg in half to make 25 mg dose. As per the Pharmacist Discharge Counseling for Stroke Patients Protocol, this phone call has been completed within 72 hours of discharge. Thank you for allowing us to be involved in the care of this patient. - Home Medications: Home Medications Medication Instructions Recorded Confirmed Women's Multivitamin 1 tab PO QAM 04/01/18 10/04/19 calcium citrate-vitamin D3 2 tab PO QAM 04/01/18 10/04/19 [Citracal + D Maximum] docusate sodium 200 mg PO QAM 04/01/18 10/04/19 levothyroxine 75 mcg PO QAM 04/01/18 10/04/19 omeprazole 20 mg PO QAM 04/01/18 10/04/19 New Rx's Medication Instructions Recorded apixaban [Eliquis] 5 mg PO BID #60 tab 10/07/19 atorvastatin 40 mg PO QAM@0800 #30 tab 10/07/19 metoprolol succinate 25 mg PO DAILY #0 tab 10/07/19
== END 2019-10-07 17:36 | disposition home health service (06) | DRG 814 ==
LOC: ED 15:00 → SUATTDRO 20:16 → 2S 20:16 → 2N 10-05 00:43 → 2S 10-05 13:05
DX: E87.6 Hypokalemia; K21.9 Gastro-esophageal reflux disease without esophagitis; D72.829 Elevated white blood cell count, unspecified; I63.9 Cerebral infarction, unspecified; G47.30 Sleep apnea, unspecified; R49.22 Hyponasality; Z86.73 Personal history of transient ischemic attack (TIA), and cerebral infarction without residual deficits; G93.40 Encephalopathy, unspecified; R11.2 Nausea with vomiting, unspecified; D73.5 Infarction of spleen; E03.9 Hypothyroidism, unspecified